=== PATIENT | male | born 1960 | race Caucasian/White ===

== ENCOUNTER 2019-12-22 07:39 | Outpatient (CLI) | payer OTHER, SELFPAY ==
--- NOTE | 2019-12-22 | EST_ITS ---
Patient Info Name: Meagan Wallace Age: 59 years : 1960 Gender: Male Ht: 69 in Wt: 250 lbs BSA: 2.40 m2 Exam Date: 12/22/2019 10:10 AM Exam Location: [facility] Stress Patient Status: Outpatient Admit Date: 12/22/2019 Staff Ordering Physician: Jayden Duarte MD Attending Provider: Jayden Duarte MD Exercise Technologist: Lorene De Los Santos RDCS Nurse: Alondra Cain ANP, ACNP- Exam Type: CA stress test treadmill w NM Study Info Indications I25.10 - Atherosclerotic heart disease of [place] coronary artery without angina pectoris A pharmacological stress test was performed. Summary 1. [address] depression in the inferolateral leads. 2. Non-diagnostic ECG response due to resting abnormalities. 3. Hypertensive blood pressure response to exercise. 4. Good exercise tolerance. 5. Nuclear test results to follow. Protocol: [facility] Stress ECG Details Stage: REST Duration (min): 7 min : 33 sec Speed (mph): 0.0 Grade (%): 0 HR (bpm): 77 SBP (mmHg): 133 DBP (mmHg): 79 METS: --- Stage: REST Duration (min): 24 min : 46 sec Speed (mph): 0.0 Grade (%): 0 HR (bpm): 87 SBP (mmHg): 133 DBP (mmHg): 79 METS: --- Stage: STAGE 1 Duration (min): 1 min : 0 sec Speed (mph): 1.7 Grade (%): 10 HR (bpm): 102 SBP (mmHg): 133 DBP (mmHg): 79 METS: --- Stage: STAGE 1 Duration (min): 2 min : 0 sec Speed (mph): 1.7 Grade (%): 10 HR (bpm): 112 SBP (mmHg): 133 DBP (mmHg): 79 METS: --- Stage: STAGE 1 Duration (min): 3 min : 0 sec Speed (mph): 1.7 Grade (%): 10 HR (bpm): 117 SBP (mmHg): 145 DBP (mmHg): 83 METS: --- Stage: STAGE 2 Duration (min): 1 min : 0 sec Speed (mph): 2.5 Grade (%): 12 HR (bpm): 122 SBP (mmHg): 145 DBP (mmHg): 83 METS: --- Stage: STAGE 2 Duration (min): 2 min : 0 sec Speed (mph): 2.5 Grade (%): 12 HR (bpm): 127 SBP (mmHg): 177 DBP (mmHg): 73 METS: --- Stage: STAGE 2 Duration (min): 3 min : 0 sec Speed (mph): 2.5 Grade (%): 12 HR (bpm): 130 SBP (mmHg): 177 DBP (mmHg): 73 METS: --- Stage: STAGE 3 Duration (min): 1 min : 0 sec Speed (mph): 3.4 Grade (%): 14 HR (bpm): 146 SBP (mmHg): 220 DBP (mmHg): 84 METS: --- Stage: STAGE 3 Duration (min): 2 min : 0 sec Speed (mph): 3.4 Grade (%): 14 HR (bpm): 153 SBP (mmHg): 220 DBP (mmHg): 84 METS: --- Stage: STAGE 3 Duration (min): 2 min : 7 sec Speed (mph): 3.4 Grade (%): 14 HR (bpm): 154 SBP (mmHg): 220 DBP (mmHg): 84 METS: --- Stage: RECOVERY Duration (min): 0 min : 52 sec Speed (mph): 0.0 Grade (%): 0 HR (bpm): 144 SBP (mmHg): 164 DBP (mmHg): 69 METS: --- Stage: RECOVERY Duration (min): 1 min : 52 sec Speed (mph): 0.0 Grade (%): 0 HR (bpm):
--- NOTE | 2019-12-22 | ECHO_ITS ---
Patient Info Name: Meagan Wallace Age: 59 years : 1960 Gender: Male Ht: 69 in Wt: 250 lbs BSA: 2.40 m2 HR: 69 bpm BP: 134 / 85 mmHg Exam Date: 12/22/2019 8:27 AM Exam Location: [facility] Pulmonary Patient Status: Outpatient Admit Date: 12/22/2019 Staff Ordering Physician: Jayden Duarte MD Stamping Bench Die Maker: Shelley Fenton RDCS Attending Provider: Jayden Duarte MD Referring Physician: Gerald PARKER; Exam Type: CA echo doppler color flow Study Info Indications I42.2 - Other hypertrophic cardiomyopathy Complete two-dimensional, color flow and Doppler transthoracic echocardiogram is performed. Summary 1. Technically difficult study, suboptimal image quality. Moderate LVH, borderline LV enlargement. Normal LV systolic function, ejection fraction about 65-70%. Grade 1 diastolic dysfunction. Normal RV size and systolic function. Mild left atrial enlargement. Mild mitral annular calcification, no significant MR. Aortic valve is not well visualized, appears to be moderately calcified. Mild aortic stenosis based on the Doppler, Vmax 2.4 m/s, calculated SAHRA 2.3 cm2. Unable to assess RVSP due to inadequate TR jet velocity. Sinus rhythm. Left Ventricle Left ventricular chamber dimension is mildly enlarged. Left ventricular systolic function is normal, estimated at 65-70%. There is moderately increased left ventricular wall thickness. Left ventricular septal wall motion is normal. The left ventricular diastolic function is grade I diastolic dysfunction. Right Ventricle Right ventricular chamber dimension is normal. Right ventricular systolic function is normal. Left Atria Left atrial chamber dimension is mildly enlarged. Right Atria Right atrial chamber dimension is normal. Aortic Valve There is no aortic valve stenosis. There is no aortic valve regurgitation. There is moderate aortic valve calcification. Pulmonic Valve The pulmonic valve is normal. There is trace pulmonic regurgitation. Mitral Valve The mitral valve has normal leaflets. There is no mitral valve stenosis. There is trace mitral valve regurgitation. The mitral valve annulus is mildly calcified. Tricuspid Valve The tricuspid valve leaflets are normal. There is no significant tricuspid valve stenosis. There is no tricuspid valve regurgitation. Pericardium/Pleural The pericardium appears epicardial fat pad. There is no pericardial effusion. Aorta The aortic root size at the sinus of Valsalva is normal. The prox ascending aorta size is normal. Left Ventricular Outflow Tract Name Value Normal LVOT 2D LVOT Diameter 2.2 cm LVOT Doppler LVOT Peak Gradient 9 mmHg LVOT Mean Gradient 5 mmHg LVOT VTI 40 cm LVOT VTI/AV VTI Ratio 0.7 LVOT Stroke Volume 145 ml Pulmonic Valve Name Value Normal RVOT Doppler
--- NOTE | ~2019-12-22 | NM_ITS ---
EXAMINATION: NM stress w perf spect multi DATE: 12/22/2019 11:44 INDICATION: Coronary atherosclerosis. TECHNIQUE: Rest images were obtained following intravenous administration of 9.4 mCi Tc99m tetrofosmi n ([place]). The patient performed an exercise activity. At peak exercise, 27.1 mCi Tc99m tetrofosmin ([employer]) was administered intravenously, and stress images were obtained. Data was reconstructed in to short axis and horizontal and vertical long axis SPECT images. Gated SPECT images were also obtain ed. COMPARISON: Myocardial perfusion imaging 09/20/2017 FINDINGS: There is no definite reversible or fixed perfusion abnormality to suggest ischemia or infar ction. There is no segmental wall motion abnormality. Left ventricular ejection fraction measures > 70%. IMPRESSION: 1. No definite ischemia or infarct. 2. Normal left ventricular ejection fraction measuring >70%. Reviewed, dictated and finalized at location A. EWATER ENGINEER
== END 2019-12-22 07:40 | disposition home or self-care (01) ==
PROVIDERS: PCP Internal Medicine; Visit Provider Internal Medicine Cardiovascular Disease
DX: I42.2 Other hypertrophic cardiomyopathy (principal); I25.10 Atherosclerotic heart disease of native coronary artery without angina pectoris; Z02.4 Encounter for examination for driving license
CPT/HCPCS: 78452; 93017; 93306; A9502

== ENCOUNTER 2020-09-14 07:11 | Outpatient (CLI) | payer OTHER, SELFPAY ==
[2020-09-14 07:50] LABS: Hemoglobin A1C 7.8 % (<5.7)
[2020-09-14 07:58] LABS: Alanine Aminotransferase 55 U/L (4-50); Albumin Level 4.2 g/dL (3.5-5.1); Alkaline Phosphatase 98 U/L (38-126); Anion Gap 10 mmol/L (8-16); Aspartate Amino Transferase 47 U/L (17-59); Bilirubin,Total 0.9 mg/dL (0.2-1.3); Blood Urea Nitrogen 31 mg/dL (9-20); Calcium 9.2 mg/dL (8.4-10.2); Carbon Dioxide 25 mmol/L (22-30); Chloride 102 mmol/L (98-107); Cholesterol 291 mg/dL (0-200); Estimated Glomerular Filt Rate 52; Glucose 215 mg/dL (75-110); Potassium 3.8 mmol/L (3.4-5.0); Sodium 137 mmol/L (137-145); Triglycerides 1572 mg/dL (<150)
[2020-09-14 08:01] LABS: LDL Cholesterol Direct 32 mg/dL
== END 2020-09-14 07:12 | disposition home or self-care (01) ==
PROVIDERS: PCP Internal Medicine; Visit Provider Nurse Practitioner
DX: E78.5 Hyperlipidemia, unspecified (principal); E11.9 Type 2 diabetes mellitus without complications
CPT/HCPCS: 36415; 80053; 80061; 83036

== ENCOUNTER 2020-12-21 11:30 | Outpatient (CLI) | payer OTHER, SELFPAY | END 2020-12-21 11:31 | disposition home or self-care (01) | LOC: ANHCOVIDVC 11:30 | PROVIDERS: PCP Internal Medicine | DX: Z23 Encounter for immunization (principal) | CPT/HCPCS: 0001A; 91300 ==

== ENCOUNTER 2021-01-11 11:27 | Outpatient (CLI) | payer OTHER, SELFPAY | END 2021-01-11 11:28 | disposition home or self-care (01) | LOC: ANHCOVIDVC 11:27 | PROVIDERS: PCP Internal Medicine | DX: Z23 Encounter for immunization (principal) | CPT/HCPCS: 0002A; 91300 ==

== ENCOUNTER 2021-01-21 07:02 | Outpatient (CLI) | payer OTHER, SELFPAY ==
[2021-01-21 07:38] LABS: Hemoglobin A1C 7.3 % (<5.7)
== END 2021-01-21 07:03 | disposition home or self-care (01) ==
PROVIDERS: PCP Internal Medicine; Visit Provider Internal Medicine
DX: E11.9 Type 2 diabetes mellitus without complications (principal)
CPT/HCPCS: 36415; 83036

== ENCOUNTER 2021-06-27 07:01 | Outpatient (CLI) | payer OTHER, SELFPAY ==
[2021-06-27 08:45] LABS: Hemoglobin A1C 8.3 % (<5.7)
[2021-06-27 08:51] LABS: LDL Cholesterol Direct 64 mg/dL
[2021-06-27 09:10] LABS: Prostate Specific Antigen 0.8 ng/mL (< OR = 4.0)
[2021-06-27 11:29] LABS: Alanine Aminotransferase 79 U/L (4-50); Albumin Level 4.2 g/dL (3.5-5.1); Alkaline Phosphatase 72 U/L (38-126); Anion Gap 6 mmol/L (8-16); Aspartate Amino Transferase 65 U/L (17-59); Blood Urea Nitrogen 22 mg/dL (9-20); Calcium 10.2 mg/dL (8.4-10.2); Carbon Dioxide 28 mmol/L (22-30); Chloride 103 mmol/L (98-107); Cholesterol 206 mg/dL (0-200); Estimated Glomerular Filt Rate 52; Glucose 230 mg/dL (65-110); HDL Direct 40 mg/dL; Potassium 4.4 mmol/L (3.4-5.0); Sodium 137 mmol/L (137-145)
[2021-06-27 11:37] LABS: Triglycerides 591 mg/dL (<150)
== END 2021-06-27 07:02 | disposition home or self-care (01) ==
LOC: ANHLAB 07:03
PROVIDERS: PCP Internal Medicine; Visit Provider Internal Medicine
DX: Z12.5 Encounter for screening for malignant neoplasm of prostate (principal); E11.9 Type 2 diabetes mellitus without complications; I10 Essential (primary) hypertension
CPT/HCPCS: 36415; 80053; 80061; 83036; 84153; G0103

== ENCOUNTER 2021-09-02 10:10 | Emergency (ER) | payer OTHER, SELFPAY ==
--- NOTE | ~2021-09-02 | XR_ITS ---
EXAMINATION: XR ankle RT min 3V DATE: 09/02/2021 12:38 INDICATION: Right ankle pain and swelling. TECHNIQUE: 4 views of right ankle were obtained. COMPARISON: None. FINDINGS: Bone alignment is normal. No fracture. Joint spaces are well maintained. There is ankle sof t tissue swelling. IMPRESSION: 1. No fracture. Reviewed, dictated and finalized at location A. UCTION LEADER IMPRESSION: 1. No fracture.
--- NOTE | ~2021-09-02 | XR_ITS ---
EXAMINATION: XR foot RT min 3V DATE: 09/02/2021 12:38 INDICATION: Right foot pain and swelling. TECHNIQUE: 4 views of right foot were obtained. COMPARISON: None. FINDINGS: Bone alignment is normal. No fracture. Joint spaces are well maintained. There is ankle sof t tissue swelling. IMPRESSION: 1. No fracture. Reviewed, dictated and finalized at location A. RAISING MANAGER IMPRESSION: 1. No fracture.
--- NOTE | ~2021-09-02 | US_ITS ---
EXAMINATION: US venous doppler LE RT DATE: 09/02/2021 12:31 INDICATION: Right lower limb pain and swelling. TECHNIQUE: Grayscale ultrasound images without and with compression and Doppler ultrasound images of the right lower extremity veins were obtained. COMPARISON: None. FINDINGS: The visualized portions of right common femoral vein, profunda (deep) femoral vein, femoral vein, pop liteal vein, peroneal veins, posterior tibial veins, and greater saphenous vein outflow are patent. IMPRESSION: 1. No deep venous thrombosis. Reviewed, dictated and finalized at location A. ERCIAL PROPERTY MANAGER
[2021-09-02 10:21] VITALS: BP 142/95; PULSE 73; RESP 18; TEMP 36.4; O2SAT 99
--- NOTE | 2021-09-02 12:12 | ED.GENADULT ---
HPI - General Adult General Chief complaint: Extremity Injury, Lower Stated complaint: right ankle pain, swelling Time Seen by Provider: 09/02/21 11:46 Source: patient Mode of arrival: ambulatory Limitations: no limitations History of Present Illness HPI narrative: Patient presents for evaluation of pain and swelling in the right ankle and foot. 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 Initially did not have significant pain. However over the course of the week he has developed pain, swelling and bruising. Current pain level is 6/10 without descriptive quality. He states initiation of change in position causes worsening pain. He noted bruising to lateral aspect of right foot Saturday, dorsal aspect of right foot and medial aspect of right foot yesterday. He has been taking ASA for pain. He has an underlying hx of HTN, hyperlipidemia, DM, CAD s/p stent placement. He does not check his BS at home and states he has no idea what his blood sugars normally run. No personal hx of VTE. He does not smoke. He states he has had intermittent swelling in RLE for quite some time. Related Data Home Medications Medication Instructions Recorded Confirmed albuterol sulfate 90 mcg/actuation 2 inhalation INHALATION Q4H PRN gm 11/12/19 07/03/21 aerosol inhaler atorvastatin 40 mg tablet 40 mg PO DAILY 11/12/19 07/03/21 clopidogrel 75 mg tablet 75 mg PO DAILY 11/12/19 07/03/21 fenofibrate nanocrystallized 145 145 mg PO DAILY 11/12/19 07/03/21 mg tablet aspirin 81 mg tablet,delayed 81 mg PO DAILY 07/03/21 07/03/21 release metoprolol tartrate 25 mg tablet 12.5 mg PO BID tablet 07/03/21 07/03/21 metoprolol tartrate 50 mg tablet 50 mg PO Q12H 07/03/21 07/03/21 niacin 1,000 mg tablet,extended 1,000 mg PO DAILY tablet 07/03/21 07/03/21 release Allergies Allergy/AdvReac Type Severity Reaction Status Date / Time propoxyphene Allergy Unknown hives Verified 09/02/21 10:25 Review of Systems Review of Systems: CONSTITUTIONAL: Denies fever, chills, or sweats. EYES: Denies visual changes, redness, or discharge. ENT: Denies rhinorrhea, congestion, sore throat, or otalgia. CARDIOVASCULAR: Reports swelling in right foot and ankle. Denies chest pain or palpitations RESPIRATORY: Denies cough or dyspnea. GASTROINTESTINAL: Denies abdominal pain, nausea, vomiting, or diarrhea. GENITOURINARY: Denies dysuria or hematuria. SKIN: Reports bruising in right foot. Denies rash or itching. MUSCULOSKELETAL:Reports pain in right ankle and foot. Denies back pain NEUROLOGIC: Denies headache, numbness, dizziness, or weakness. PSYCHIATRIC: Denies anxiety or depression. [facility] Past Medical History Medical History Coronary artery disease Diabetes Hyperlipidemia Hypertension Family History Family History Mother Hypertension Family history of diabetes mellitus in first degree relative Family history of heart disease in male family member before age 55 Father Family history of Parkinson's disease Family history of diabetes mellitus in first degree relative Social History Social History Smoking packs per day: 2 Smoking cigarettes per day: 40.0 Years smoked: 30 Smoking pack-years: 60.00 Smoking status: Former smoker Tobacco type: cigarettes Second hand tobacco smoke exposure: No Smoking end date: 10/21/08 Alcohol intake: current Drinks per week: 2 Alcohol use details: beers Substance use: never Exam Narrative: GENERAL: Well-appearing, well-nourished, and in no acute distress. HEAD: Normocephalic, atraumatic. EYES: PERRLA and EOMI. ENT: Nares clear, no rhinorrhea or epistaxis. Mucous membranes moist. Oropharynx without tonsillar hypertrophy exudate or other lesions. Bilateral TMs ranjit
[2021-09-02] MEDS: HYDROcodone/acetaminophen (*CRX) 5-325 MG TABLET 2 TAB PO (12:17)
== END 2021-09-02 13:09 | disposition home or self-care (01) ==
PROVIDERS: Emergency Provider Nurse Practitioner; PCP Internal Medicine
DX: S90.01XA Contusion of right ankle, initial encounter (principal); I10 Essential (primary) hypertension; E78.5 Hyperlipidemia, unspecified; E11.9 Type 2 diabetes mellitus without complications; I25.10 Atherosclerotic heart disease of native coronary artery without angina pectoris; M79.89 Other specified soft tissue disorders; Z87.891 Personal history of nicotine dependence; Z79.899 Other long term (current) drug therapy; Z79.82 Long term (current) use of aspirin; W22.09XA Striking against other stationary object, initial encounter
CPT/HCPCS: 73610; 73630; 93971; 99284; A9270

== ENCOUNTER 2021-09-28 13:22 | Outpatient (CLI) | payer OTHER, SELFPAY ==
[2021-09-28 14:50] LABS: Alanine Aminotransferase 54 U/L (4-50); Albumin Level 4.6 g/dL (3.5-5.1); Alkaline Phosphatase 72 U/L (38-126); Anion Gap 10 mmol/L (8-16); Aspartate Amino Transferase 50 U/L (17-59); Bilirubin,Total 1.5 mg/dL (0.2-1.3); Blood Urea Nitrogen 24 mg/dL (9-20); Calcium 10.1 mg/dL (8.4-10.2); Carbon Dioxide 24 mmol/L (22-30); Chloride 103 mmol/L (98-107); Cholesterol 170 mg/dL (0-200); Estimated Glomerular Filt Rate 44; Glucose 137 mg/dL (65-110); HDL Direct 37 mg/dL; Potassium 3.9 mmol/L (3.4-5.0); Sodium 137 mmol/L (137-145); Triglycerides 488 mg/dL (<150)
[2021-09-28 15:01] LABS: LDL Cholesterol Direct 55 mg/dL
[2021-09-28 15:19] LABS: Prostate Specific Antigen 0.9 ng/mL (< OR = 4.0)
[2021-09-28 16:33] LABS: Hemoglobin A1C 7.9 % (<5.7)
[2021-09-28 16:47] LABS: Creatinine Urine 98.2 mg/dL
[2021-09-28 17:06] LABS: MALB Creatinine Ratio 237.4 mg/g (0-30); Microalbumin Urine Random 233.1 mg/L (0-16.7)
== END 2021-09-28 13:23 | disposition home or self-care (01) ==
PROVIDERS: PCP Internal Medicine; Visit Provider Nurse Practitioner
DX: E11.9 Type 2 diabetes mellitus without complications (principal); E78.2 Mixed hyperlipidemia; Z12.5 Encounter for screening for malignant neoplasm of prostate
CPT/HCPCS: 36415; 80053; 80061; 82043; 83036; 84153; G0103

== ENCOUNTER 2021-10-24 08:03 | Emergency (ER) | payer OTHER, SELFPAY ==
[2021-10-24 08:13] VITALS: BP 129/80; PULSE 72; RESP 18; TEMP 36.8; O2SAT 99
--- NOTE | 2021-10-24 08:21 | ED.URI ---
HPI - URI/Sore Throat General Chief Complaint: Upper Respiratory Infection Stated Complaint: Sinus Infection Time Seen by Provider: 10/24/21 08:20 Source: patient, family, RN notes reviewed and old records reviewed Mode of arrival: ambulatory Limitations: no limitations History of Present Illness HPI Narrative: 60-year-old male who presents to [facility] with complaints of 3-week duration of left nasal congestion stuffiness with yellow drainage. Patient states that he did get a Z-Julius from his physician on October 12 and completed all doses with no improvement in his symptoms. Patient states he does use CPAP which is on recall states he seems to be getting frequent sinus infections. Patient denies any acute cough or any shortness of breath, he has a history of pneumonia, and COPD has not had to use his rescue inhaler. Patient denies any ear pain sore throat or fevers. Patient states he has had influenza and Covid vaccines with booster. Related Data Home Medications Medication Instructions Recorded Confirmed albuterol sulfate 90 mcg/actuation 2 inhalation INHALATION Q4H PRN gm 11/12/19 10/24/21 aerosol inhaler atorvastatin 40 mg tablet 40 mg PO DAILY 11/12/19 10/24/21 clopidogrel 75 mg tablet 75 mg PO DAILY 11/12/19 10/24/21 aspirin 81 mg tablet,delayed 81 mg PO DAILY 07/03/21 10/24/21 release metoprolol tartrate 25 mg tablet 12.5 mg PO BID tablet 07/03/21 10/24/21 metoprolol tartrate 50 mg tablet 50 mg PO Q12H 07/03/21 10/24/21 amlodipine 5 mg PO DAILY 10/24/21 10/24/21 fluticasone propion-salmeterol 1 inh INHALATION DAILY 10/24/21 10/24/21 [Wixela Inhub] glipizide 5 mg PO DAILY 10/24/21 10/24/21 niacin 1,000 mg PO DAILY 10/24/21 10/24/21 prednisolone acetate 1 drp EACH EYE DAILY 10/24/21 10/24/21 Allergies Allergy/AdvReac Type Severity Reaction Status Date / Time propoxyphene Allergy Unknown hives Verified 10/24/21 08:14 Review of Systems Review of Systems: CONSTITUTIONAL: Denies fever, chills, or sweats. EYES: Denies visual changes, redness, or discharge. ENT: Positive rhinorrhea, congestion, no sore throat, or otalgia. CARDIOVASCULAR: Denies chest pain, palpitations, or edema. RESPIRATORY: Denies acute cough or dyspnea. GASTROINTESTINAL: Denies abdominal pain, nausea, vomiting, or diarrhea. GENITOURINARY: Denies dysuria or hematuria. SKIN: Denies rash or itching. MUSCULOSKELETAL: Denies back pain, joint pain, or myalgia. NEUROLOGIC: Denies headache, numbness, or weakness. PSYCHIATRIC: Denies anxiety or depression. All systems reviewed & are unremarkable except as noted in HPI and below PMFSH Past Medical History Medical History (Updated 10/24/21 @ 08:41 by Shelby Doty NP) Coronary artery disease Diabetes Hyperlipidemia Hypertension Surgical History Surgical History (Updated 10/24/21 @ 08:38 by Shelby Doty NP) History of cholecystectomy History of heart artery stent History of thoracotomy Family History Family History Mother Hypertension Family history of diabetes mellitus in first degree relative Family history of heart disease in male family member before age 55 Father Family history of Parkinson's disease Family history of diabetes mellitus in first degree relative Social History Social History Smoking packs per day: 2 Smoking cigarettes per day: 40.0 Years smoked: 30 Smoking pack-years: 60.00 Smoking status: Former smoker Tobacco type: cigarettes Second hand tobacco smoke exposure: No Smoking end date: 10/21/08 Alcohol intake: current Drinks per week: 2 Alcohol use details: beers Substance use: never Comments At time of signature, agree with nursing past medical, surgical, social and family history. There is no relevant family history pertinent to the presenting complaint Exam Narrative: GENERAL: Well-appearing, well-nour
== END 2021-10-24 08:50 | disposition home or self-care (01) ==
PROVIDERS: Emergency Provider Registered Nurse; PCP Internal Medicine
DX: J32.9 Chronic sinusitis, unspecified (principal); Z87.891 Personal history of nicotine dependence; I25.10 Atherosclerotic heart disease of native coronary artery without angina pectoris; E11.9 Type 2 diabetes mellitus without complications; E78.5 Hyperlipidemia, unspecified; I10 Essential (primary) hypertension; Z95.5 Presence of coronary angioplasty implant and graft; Z79.82 Long term (current) use of aspirin
CPT/HCPCS: 99213; G0463

== ENCOUNTER 2021-11-15 09:01 | Outpatient (CLI) | payer OTHER, SELFPAY ==
--- NOTE | ~2021-11-15 | XR_ITS ---
EXAMINATION: XR chest 2V EXAM DATE: 11/15/2021 09:15 INDICATION: R06.02 - Shortness of breath. TECHNIQUE: Frontal and lateral projections of the chest obtained and reviewed. Comparison is made to prior examination from 03/03/1970. FINDINGS: Chronic left pleural blunting. Cardiomediastinal silhouette is normal. No confluent consol idation, or pneumothorax. There are mild bony degenerative changes. IMPRESSION: No acute cardiac pulmonary findings or interval change. Reviewed, dictated and finalized at location A. S C DRIVER
== END 2021-11-15 09:02 | disposition home or self-care (01) ==
PROVIDERS: PCP Internal Medicine; Visit Provider Internal Medicine
DX: R06.02 Shortness of breath (principal)
CPT/HCPCS: 71046

== ENCOUNTER 2022-01-03 07:58 | Outpatient (CLI) | payer OTHER, SELFPAY ==
--- NOTE | 2022-01-03 | ECHO_ITS ---
Patient Info Name: Meagan Wallace Age: 61 years : 1960 Gender: Male Ht: 69 in Wt: 250 lbs BSA: 2.40 m2 HR: 76 bpm BP: 137 / 92 mmHg Heart Rhythm: Sinus Rhythm Exam Date: 01/03/2022 8:40 AM Exam Location: [facility] Patient Status: Outpatient Admit Date: 01/03/2022 Staff Ordering Physician: Jayden Duarte MD Clipper Automatic: Olivier Ascencio RDCS, RT Attending Provider: Jayden Duarte MD Referring Physician: Gerald PARKER; Exam Type: CA echo doppler color flow Study Info Indications I42.2 - Other hypertrophic cardiomyopathy Complete two-dimensional, color flow and Doppler transthoracic echocardiogram is performed. Strain analysis performed. Summary 1. Complete two-dimensional, color flow and Doppler transthoracic echocardiogram is performed. 2. Left ventricular chamber dimension is normal. 3. Left ventricular systolic function is hyperdynamic, estimated at >70%. 4. There is mildly increased left ventricular wall thickness. 5. The left ventricular diastolic function is grade II diastolic dysfunction. 6. Global longitudinal strain is abnormal at -14 %. 7. 'Dagger-shaped' LVOT velocities up to around 1.7 m/sec. 8. Left atrial chamber dimension is mildly enlarged. 9. There is mild aortic valve stenosis with a peak velocity of 241 cm/s, mean gradient of 12 mmHg, and aortic valve area of 2.2 cm2. 10. There is mild aortic valve calcification. 11. There is mild mitral valve regurgitation. 12. Strain analysis performed. Left Ventricle Left ventricular chamber dimension is normal. Left ventricular systolic function is hyperdynamic, estimated at >70%. There is mildly increased left ventricular wall thickness. The left ventricular diastolic function is grade II diastolic dysfunction. Global longitudinal strain is abnormal at -14 %. 'Dagger-shaped' LVOT velocities up to around 1.7 m/sec. Right Ventricle Right ventricular chamber dimension is normal. Right ventricular systolic function is normal. Left Atria Left atrial chamber dimension is mildly enlarged. Right Atria Right atrial chamber dimension is normal. Atrial Septum Intact interatrial septum visualized by color flow imaging. Aortic Valve The aortic valve is trileaflet. There is mild aortic valve stenosis with a peak velocity of 241 cm/s, mean gradient of 12 mmHg, and aortic valve area of 2.2 cm2. There is trace aortic valve regurgitation. There is mild aortic valve calcification. Pulmonic Valve The pulmonic valve is normal. There is no pulmonic valve stenosis. There is trace pulmonic regurgitation. Mitral Valve The mitral valve has normal leaflets. There is no mitral valve stenosis. There is mild mitral valve regurgitation. Tricuspid Valve No pulmonary hypertension, estimated pulmonary arterial systolic pressure is 31 mmHg. The tricuspid valve leaflets are normal. There is no significant tricuspid valve stenosis. There is trace tricuspid valve regurgitation. Pericardium/Pleural The pericardium appears normal. There is no pericardial effusion. Inferior Vena Cava Normal inferior vena cava with >50% collapse upon inspiration consistent with normal right atrial pressure, 8 mmHg. Aorta The aortic root size at the sinus of Valsalva is normal. Left Ventricular Outflow Tract Name Value Normal
--- NOTE | 2022-01-03 | EST_ITS ---
Patient Info Name: Meagan Wallace Age: 61 years : 1960 Gender: Male Ht: 69 in Wt: 250 lbs BSA: 2.40 m2 BP: 137 / 92 mmHg Exam Date: 01/03/2022 10:13 AM Exam Location: [facility] Stress Patient Status: Outpatient Admit Date: 01/03/2022 Staff Ordering Physician: Jayden Duarte MD Attending Provider: Jayden Duarte MD Exercise Technologist: Olivier Ascencio RDCS, RT Exercise Physician: Saige Mason MD Exam Type: CA stress test treadmill w NM Study Info A nuclear stress test was performed. Summary 1. Baseline and/or hyperventilation ST-T changes preclude reliable interpretation of abnormal ST depression during stress. 2. Nuclear test results to follow. Protocol: [facility] Stress ECG Details Stage: REST Duration (min): 8 min : 5 sec Speed (mph): 0.0 Grade (%): 0 HR (bpm): 78 SBP (mmHg): 120 DBP (mmHg): 77 METS: --- Stage: REST Duration (min): 19 min : 20 sec Speed (mph): 0.0 Grade (%): 0 HR (bpm): 87 SBP (mmHg): 120 DBP (mmHg): 77 METS: --- Stage: STAGE 1 Duration (min): 1 min : 0 sec Speed (mph): 1.7 Grade (%): 10 HR (bpm): 101 SBP (mmHg): 120 DBP (mmHg): 77 METS: --- Stage: STAGE 1 Duration (min): 2 min : 0 sec Speed (mph): 1.7 Grade (%): 10 HR (bpm): 109 SBP (mmHg): 120 DBP (mmHg): 77 METS: --- Stage: STAGE 1 Duration (min): 3 min : 0 sec Speed (mph): 1.7 Grade (%): 10 HR (bpm): 113 SBP (mmHg): 165 DBP (mmHg): 78 METS: --- Stage: STAGE 2 Duration (min): 1 min : 0 sec Speed (mph): 2.5 Grade (%): 12 HR (bpm): 118 SBP (mmHg): 165 DBP (mmHg): 78 METS: --- Stage: STAGE 2 Duration (min): 2 min : 0 sec Speed (mph): 2.5 Grade (%): 12 HR (bpm): 123 SBP (mmHg): 164 DBP (mmHg): 95 METS: --- Stage: STAGE 2 Duration (min): 3 min : 0 sec Speed (mph): 2.5 Grade (%): 12 HR (bpm): 124 SBP (mmHg): 164 DBP (mmHg): 95 METS: --- Stage: STAGE 3 Duration (min): 1 min : 0 sec Speed (mph): 3.4 Grade (%): 14 HR (bpm): 138 SBP (mmHg): 196 DBP (mmHg): 94 METS: --- Stage: STAGE 3 Duration (min): 1 min : 41 sec Speed (mph): 3.4 Grade (%): 14 HR (bpm): 146 SBP (mmHg): 196 DBP (mmHg): 94 METS: --- Stage: RECOVERY Duration (min): 0 min : 18 sec Speed (mph): 1.5 Grade (%): 0 HR (bpm): 145 SBP (mmHg): 196 DBP (mmHg): 94 METS: --- Stage: RECOVERY Duration (min): 1 min : 18 sec Speed (mph): 0.0 Grade (%): 0 HR (bpm): 117 SBP (mmHg): 196 DBP (mmHg): 94 METS: --- Stage: RECOVERY Duration (min): 2 min : 18 sec Speed (mph): 0.0 Grade (%): 0 HR (bpm): 104 SBP (mmHg): 196 DBP (mmHg): 94 METS: --- Stage: RECOVERY Duration (min): 3 min :
--- NOTE | ~2022-01-03 | NM_ITS ---
EXAMINATION: NM stress w perf spect multi DATE: 01/03/2022 13:04 INDICATION: Coronary artery disease post coronary artery bypass grafting TECHNIQUE: Rest images were obtained following intravenous administration of 9.8 mCi Tc99m tetrofosmi n ([place]). The patient performed an exercise activity. At peak exercise, 30 mCi Tc99m tetrofosmin ( [employer]) was administered intravenously, and stress images were obtained. Data was reconstructed into short axis and horizontal and vertical long axis SPECT images. Gated SPECT images were also obtained . COMPARISON: 12/22/2019 FINDINGS: Left ventricular perfusion remains normal without definite evidence of reversible or fixed perfusion abnormality to suggest ischemia or infarction. There is normal left ventricular chamber size, wall m otion and ejection fraction. Left ventricular ejection fraction measures 55%. IMPRESSION: 1. Normal myocardial perfusion at rest and during stress. 2. Left ventricular ejection fraction measuring 55%. Reviewed, dictated and finalized at location A.
== END 2022-01-03 07:59 | disposition home or self-care (01) ==
PROVIDERS: PCP Internal Medicine; Visit Provider Internal Medicine Cardiovascular Disease
DX: I42.2 Other hypertrophic cardiomyopathy (principal); I25.10 Atherosclerotic heart disease of native coronary artery without angina pectoris; I35.1 Nonrheumatic aortic (valve) insufficiency; I34.0 Nonrheumatic mitral (valve) insufficiency
CPT/HCPCS: 78452; 93017; 93306; A9502

== ENCOUNTER 2022-02-03 09:52 | Outpatient (CLI) | payer OTHER, SELFPAY ==
[2022-02-03 10:44] LABS: Hemoglobin A1C 7.9 % (<5.7)
[2022-02-03 10:47] LABS: Alanine Aminotransferase 48 U/L (4-50); Albumin Level 4.4 g/dL (3.5-5.1); Alkaline Phosphatase 81 U/L (38-126); Anion Gap 7 mmol/L (8-16); Aspartate Amino Transferase 50 U/L (17-59); Bilirubin,Total 1.3 mg/dL (0.2-1.3); Blood Urea Nitrogen 21 mg/dL (9-20); Calcium 9.3 mg/dL (8.4-10.2); Carbon Dioxide 23 mmol/L (22-30); Chloride 108 mmol/L (98-107); Cholesterol 158 mg/dL (0-200); Estimated Glomerular Filt Rate 52; Glucose 235 mg/dL (65-110); HDL Direct 32 mg/dL; Potassium 4.3 mmol/L (3.4-5.0); Sodium 138 mmol/L (137-145)
[2022-02-03 10:54] LABS: LDL Cholesterol Direct 43 mg/dL
[2022-02-03 11:06] LABS: Triglycerides 643 mg/dL (<150)
== END 2022-02-03 09:53 | disposition home or self-care (01) ==
LOC: ANHLAB 09:53
PROVIDERS: PCP Internal Medicine; Visit Provider Internal Medicine
DX: E78.5 Hyperlipidemia, unspecified (principal); E11.9 Type 2 diabetes mellitus without complications; I10 Essential (primary) hypertension
CPT/HCPCS: 36415; 80053; 80061; 83036

== ENCOUNTER 2022-03-16 06:34 | Outpatient (CLI) | payer OTHER, SELFPAY ==
--- NOTE | ~2022-03-16 | CT_ITS ---
EXAMINATION: CT sinus wo con DATE: 03/16/2022 07:09 INDICATION: Nasal polyps. TECHNIQUE: Computed tomography (CT) of the paranasal sinuses was performed without intravenous contra st. Iterative reconstruction technique was employed. The dose-length product was 280.71 mGy-cm. COMPARISON: None FINDINGS: There is near complete opacification of the left frontal sinuses. There is mild mucosal thi ckening in right frontal recess. There is moderate to severe mucosal thickening in the ethmoid sinuse s and mild mucosal thickening in the sphenoid sinuses. There is severe mucosal thickening in the maxi llary sinuses. There is rightward deviation of the nasal septum. There is debi bullosa involving th e middle turbinates. The ostiomeatal units are occluded. There are polyps in the nasal cavity, left w orse than right. There are likely changes of ocular lens replacement surgeries. IMPRESSION: 1. Polyps in the nasal cavity. 2. Mucosal thickening in the paranasal sinuses with occluded ostiomeatal units. These findings may be sinonasal polyposis. 3. Rightward deviation of the nasal septum. Reviewed, dictated and finalized at location A.
== END 2022-03-16 06:35 | disposition home or self-care (01) ==
LOC: ANHIMG 06:38
PROVIDERS: PCP Internal Medicine; Visit Provider Otolaryngology
DX: J32.9 Chronic sinusitis, unspecified (principal); R44.8 Other symptoms and signs involving general sensations and perceptions; R09.82 Postnasal drip; J34.3 Hypertrophy of nasal turbinates; J34.2 Deviated nasal septum; J34.89 Other specified disorders of nose and nasal sinuses; R09.81 Nasal congestion; J33.9 Nasal polyp, unspecified
CPT/HCPCS: 70486

== ENCOUNTER 2022-04-06 04:19 | Day surgery (SDC) | payer OTHER, SELFPAY ==
--- NOTE | 2022-04-02 15:48 | PC.NURSE ---
Report to the Outpatient Waiting Room, entrance under the green pavilion located off [facility], at time _0600 on date _04/06/22. OR Time: __0730_. - You and your visitor will be asked a series of questions to screen for COVID 19 for your protection. - Only one visitor is allowed at this time. - The patient visitor is requested to leave or wait in car when not with patient. - A mask is required within the hospital. Patients may have clear liquids (water, carbonated beverages, clear teas, apple juice) until 3 hours prior to surgery with a maximum of 20 ounces. - No food from midnight until time of surgery - Take the following medications with a SIP of water the morning of surgery: __AMLODIPINE; METOPROLOL; PREDNISONE; PREDNISOLONE EYE GTTS Medications to discontinue per physician __ASA & PLAVIX STOP PER DR. BOO INSTRUCTIONS__ Date to take last dose____04/02/22 Please no make-up, nail yoruba, hairspray, perfume, deodorant, or body powder the day of surgery. No jewelry (including any body piercings) or valuables the day of surgery, leave them at home. Please take a shower or bath the night before, or the morning of, surgery with an antibacterial soap. Wear comfortable, loose fitting clothing. Children are encouraged to wear pajamas. - Jewelry must be removed prior to entering the operating room. Rings and piercings that are not removed may be cut off. - The hospital will not accept responsibility for valuables. - Please leave all valuables, including medications, at home the day of surgery. If you are going home after surgery, a licensed utility driver must drive you home. - NO public transportation without another adult. - We recommend that an adult stay with you for 24 hours following discharge. - We also recommend that you do not drive, make important decision, drink alcoholic beverages, or take any drugs that were not prescribed by your health care provider for at least 24 hours after your discharge time. Follow any additional instructions given to you from your surgeon. If you or anyone in your household have experienced Covid symptoms in the past week, please notify your surgeon or the nurse liaison at the phone number below for possible testing. Telephone instructions given to __CAMRON OSEGUERA and asked if any additional questions and then verbalized understanding. Patient advised to call surgeon office or pre surgery nurse liaison [phone] if any additional questions.
--- NOTE | 2022-04-05 07:56 | PM.IMHP ---
H&P: HPI History of Present Illness Date/Time: 04/05/22 07:56 Chief Complaint: chronic sinus nasal polyps septal deviation turbinate hypertrophy nasal congestion nasal obstruction postnasal drainage facial pressure facial pain Narrative: patient presents for planned surgical procedure no change in symptoms no change in history Review of Systems Review of Systems: All systems reviewed & are unremarkable except as noted in HPI and below PMFSH Past Medical History Medical History Coronary artery disease Diabetes Hyperlipidemia Hypertension Surgical History Surgical History History of cholecystectomy History of heart artery stent History of thoracotomy Family History Family History Mother Hypertension Family history of diabetes mellitus in first degree relative Family history of heart disease in male family member before age 55 Father Family history of Parkinson's disease Family history of diabetes mellitus in first degree relative Social History Social History Smoking packs per day: 2 Smoking cigarettes per day: 40.0 Years smoked: 35 Smoking pack-years: 70.00 Smoking status: Former smoker Tobacco type: cigarettes Second hand tobacco smoke exposure: No Smoking end date: 10/21/08 Alcohol intake: current Drinks per week: 2 Alcohol use details: miguel Substance use: never Substance use type: does not use Last use: 2008 Living arrangements: with family Spiritual care concerns: No Meds Home Medications and Allergies Home Medications Medication Instructions Recorded Confirmed Type clopidogrel 75 mg tablet 75 mg PO DAILY 11/12/19 04/02/22 History aspirin 81 mg tablet,delayed 81 mg PO DAILY 07/03/21 04/02/22 History release metoprolol tartrate 25 mg tablet 12.5 mg PO BID 07/03/21 04/02/22 History metoprolol tartrate 50 mg tablet 50 mg PO Q12H 07/03/21 04/02/22 History glipizide 10 mg tablet, extended 10 mg PO DAILY #90 tabs 10/05/21 04/02/22 Rx release 24 hr prednisolone acetate 1 % eye 1 drp EACH EYE DAILY 10/24/21 04/02/22 History drops,suspension fluticasone 250 mcg-salmeterol 50 1 inh inhalation DAILY #60 ea 12/28/21 04/02/22 Rx mcg/dose blistr powdr for inhalation (Wixela Inhub) albuterol sulfate 90 mcg/actuation 2 inh inhalation Q4H PRN shortness 02/01/22 04/02/22 Rx aerosol inhaler of breath or wheezing #8.5 grams rosuvastatin 40 mg tablet 40 mg PO DAILY #90 tabs 02/08/22 04/02/22 Rx fluticasone propionate 93 1 spray intranasal Q12H #16 mL 03/08/22 04/02/22 Rx mcg/actuation breath activated aerosol (Xhance) empagliflozin 25 mg tablet 25 mg PO DAILY #90 tabs 03/28/22 04/02/22 Rx (Jardiance) amlodipine 5 mg tablet 5 mg PO DAILY 04/02/22 04/02/22 History icosapent ethyl 1 gram capsule 2 g PO BID 04/02/22 04/02/22 History (Vascepa) prednisone 10 mg tablet 10 mg PO DAILY #4 tabs 04/02/22 04/02/22 Rx sitagliptin 100 mg tablet (Januvia) 100 mg PO DAILY 04/02/22 04/02/22 History Allergies Allergy/AdvReac Type Severity Reaction Status Date / Time No Known Allergies Allergy Verified 04/02/22 15:45 Exam HENMT: Other: septal deviation turbinate hypertrophy middle meatal edema Assessment and Plan Assessment and plan (1) Facial pressure: Code(s): R44.8 - Other symptoms and signs involving general sensations and perceptions Status: Acute (2) PND (post-nasal drip): Code(s): R09.82 - Postnasal drip Status: Acute (3) Hypertrophy of both inferior nasal turbinates: Code(s): J34.3 - Hypertrophy of nasal turbinates Status: Acute (4) Nasal septal deviation: Code(s): J34.2 - Deviated nasal septum Status: Acute (5) Nasal obstruction: Code(s): J34.89 - Other specified
[2022-04-06] VITALS (12 sets, daily range): BP systolic 118–167; BP diastolic 73–83; PULSE 70–81; RESP 12–22; TEMP 36.4; O2SAT 88–98
--- NOTE | 2022-04-06 07:12 | WPDHPUPDATE1 ---
History and Physical Update Update Date/Time: 04/06/22 07:12 History and Physical has been reviewed, including an updated exam of the patient. There are NO changes in the patient's condition. Risks, benefits, and alternatives have been discussed and questions answered. Patient agrees to proceed with procedure.
--- NOTE | 2022-04-06 07:16 | WPDANESEPPF ---
Anes - Initial Pre Proc Eval Procedure: Operation Date: 04/06/22 09:00 Proposed Procedures p Image Guided Endoscopic Bilateral Maxillary Antrostomy, Total Ethmoidectomy, Sphenoidotomy, Frontal Sinusotomy, Bilateral Inferior Turbinectomy with Outfracture, - Danny Zhang MD s Septoplasty - Danny Zhang MD Date/Time: 04/06/22 07:16 Surgeon: Danny Zhang MD Pre Op Diagnosis: chronic sinusitis Patient Data Age: 61 Gender: M Height: 1.75 m Weight: 113.5 kg Allergies Allergy/AdvReac Type Severity Reaction Status Date / Time No Known Allergies Allergy Verified 04/02/22 15:45 Home Medications Medication Instructions Recorded Confirmed Type clopidogrel 75 mg tablet 75 mg PO DAILY 11/12/19 04/02/22 History aspirin 81 mg tablet,delayed 81 mg PO DAILY 07/03/21 04/02/22 History release metoprolol tartrate 25 mg tablet 12.5 mg PO BID 07/03/21 04/02/22 History metoprolol tartrate 50 mg tablet 50 mg PO Q12H 07/03/21 04/02/22 History glipizide 10 mg tablet, extended 10 mg PO DAILY #90 tabs 10/05/21 04/02/22 Rx release 24 hr prednisolone acetate 1 % eye 1 drp EACH EYE DAILY 10/24/21 04/02/22 History drops,suspension fluticasone 250 mcg-salmeterol 50 1 inh inhalation DAILY #60 ea 12/28/21 04/02/22 Rx mcg/dose blistr powdr for inhalation (Wixela Inhub) albuterol sulfate 90 mcg/actuation 2 inh inhalation Q4H PRN shortness 02/01/22 04/02/22 Rx aerosol inhaler of breath or wheezing #8.5 grams rosuvastatin 40 mg tablet 40 mg PO DAILY #90 tabs 02/08/22 04/02/22 Rx fluticasone propionate 93 1 spray intranasal Q12H #16 mL 03/08/22 04/02/22 Rx mcg/actuation breath activated aerosol (Xhance) empagliflozin 25 mg tablet 25 mg PO DAILY #90 tabs 03/28/22 04/02/22 Rx (Jardiance) amlodipine 5 mg tablet 5 mg PO DAILY 04/02/22 04/02/22 History icosapent ethyl 1 gram capsule 2 g PO BID 04/02/22 04/02/22 History (Vascepa) prednisone 10 mg tablet 10 mg PO DAILY #4 tabs 04/02/22 04/02/22 Rx sitagliptin 100 mg tablet (Januvia) 100 mg PO DAILY 04/02/22 04/02/22 History Patient hx anesthesia problems: none Family hx anesthesia problems: none Results Review: All pre-operative results and documents have been reviewed as part of the pre-operative evaluation. [facility] Past Medical History Medical History (Updated 04/06/22 @ 07:17 by Mono Mercer DO) COPD (chronic obstructive pulmonary disease) Coronary artery disease Diabetes History of heart attack Hyperlipidemia Hypertension Surgical History Surgical History (Updated 04/06/22 @ 07:17 by Mono Mercer DO) History of cholecystectomy History of heart artery stent x2 stents History of thoracotomy Family History Family History Mother Hypertension Family history of diabetes mellitus in first degree relative Family history of heart disease in male family member before age 55 Father Family history of Parkinson's disease Family history of diabetes mellitus in first degree relative Social History Social History Smoking packs per day: 2 Smoking cigarettes per day: 40.0 Years smoked: 35 Smoking pack-years: 70.00 Smoking status: Former smoker Tobacco type: cigarettes Second hand tobacco smoke exposure: No Smoking end date: 10/21/08 Alcohol intake: current Drinks per week: 2 Alcohol use details: miguel Substance use: never Substance use type: does not use Last use: 2008 Living arrangements: with family Spiritual care concerns: No Anes - Eval Final PreProcedure Day of Procedure 04/06/22 07:16 Patient weight: obese Heart: regular rate and rhythm Lungs: clear to auscultation Airway: Mallampati scale class II Neurological: alert and oriented Last oral intake: >/= 8 hours ASA classification: III Emergent: no Anesthetic plan: proceed Anesthesia type and monitoring: general ETT and standa
[2022-04-06] MEDS: LACTATED RINGERS 1,000 ML 30 ML IV CONT ×2 (07:37→11:21)
[2022-04-06] MEDS: ACETAMINOPHEN 500 MG TABLET 1000 MG PO (07:37)
[2022-04-06 07:41] LABS: Glucose Point of Care 233 mg/dl (65-105)
[2022-04-06] MEDS: ceFAZolin 2 GM/D5W 50 ML 2 GM/50 ML BAG IVPB (08:27)
[2022-04-06] MEDS: OXYMETAZOLINE HCL 0.05% NAS 15 ML BTL (*BKC) 1 SPRAY NASAL (08:34)
[2022-04-06] MEDS: LIDO 1%/EPINEPHRINE/PF 1:200,000 30 ML VIAL 5 ML XX (08:35)
--- NOTE | 2022-04-06 12:47 | SUR.PHASEII ---
1247- Notified Dr. Mercer patient's BG 267 and oxygen saturation in high 80's to low 90's on room air. Received orders to give 3 units Regular insulin IVP and Albuterol nebulizer treatment.
[2022-04-06 12:55] LABS: Glucose Point of Care 267 mg/dl (65-105)
[2022-04-06] MEDS: INSULIN HUMAN REGULAR (*BKC) 100 UNITS/ML IV PUSH (12:58)
[2022-04-06] MEDS: ALBUTEROL SULFATE NEB 2.5 MG/3 ML INH INHALATION (13:06)
--- NOTE | 2022-04-07 08:17 | W.PM.PROC2 ---
Procedure Note - Detailed Date of Procedure 04/07/22 Pre-op Diagnosis chronic sinusitis, septal deviation, turbinate hypertrophy, nasal obstruction, nasal congestion, nasal polyps, debi bullosa Post-op Diagnosis Same Procedure Performed endoscopic assisted septoplasty, bilateral inferior turbinate submucosal reduction with outfracture, bilateral image guided endoscopic maxillary antrostomies both with tissue removal, endoscopic image guided bilateral total ethmoidectomies, image guided endoscopic bilateral sphenoidotomies, image guided endoscopic left-sided frontal sinusotomy, bilateral image guided endoscopic middle turbinectomies. Surgeon Danny Zhang MD Anesthesia General Indications See above Findings large polypoid burden bilateral middle turbinates leading to resection septal deviation well corrected following surgery small anterior spurs left on the septum is were fairly obstructive middle turbinates well reduced. A severe disease burden polypoid not follow in the bilateral maxillary sinuses. Description of Procedure Patient identified consent verified. Patient brought operating. Time-out performed. General anesthesia induced. Endotracheal tube secured taped left lower lip. Image guidance initiated confirmed. Patient prepped and draped for for mentioned procedure. Second time-out performed. Afrin-soaked pledgets placed in the bilateral nasal passages allowed to sit for 5 minutes then removed. 0 degree endoscope utilized bilateral septal deviation S-shaped more on the right noted 10 cc 1% local 1 100,000 parts epinephrine injected in the bilateral septum sub mucoperichondrial plane. Left-sided [place] sitting made. Left-sided nasal septal flap elevated 7 Turkish suction. Osteotome in utilized to cross the nasal septum. Right-sided nasal splint septal flap elevated. Deviated nasal septum removed with combination Derek Salinas and Lacho forceps as well as osteotome. Orlin incision on the left nasal septum then closed with 2 interrupted 5 0 fast gut sutures. Turbinates reduced in the submucoperichondrial plane sorry submucosal plane 2 mm microdebrider outfractured this occurred after injecting 1 cc of 1% lidocaine with 1 100,000 parts epinephrine into each inferior turbinate. Again that was a bilateral procedure. Middle turbinates then resected after injecting 1 cc into them. They had large polyp burden. They were resected with straight through cut image guidance the stumps were adequately cauterized. Bilateral maxillary antrostomies performed with double ball tip probe backbiter and straight through cut as well as micro debrider. Rad 60 utilized to remove severe polyp burden from the bilateral maxillary sinuses. Ethmoidectomies performed with Kerrison straight through cut as well as microdebrider and a significant use of image guidance given the severe polyp burden. He polypectomy was essentially performed throughout the procedure with microdebrider. Sphenoid odd a means performed with image guidance 1 Kerrison to 3 Kerrison micro debrider adequately opened. Partitions were cleaned off the skull base and orbits there were no injuries no complications. Left frontal sinusotomy performed with 70 degree scope 70 degree suction Cobra hose Ashlie in front to back draft. Following the procedure posterior septal branches as well as stumps were again cauterized. Nova pack was placed in the bilateral postoperative cavities does splints then placed sutured anteriorly using a mattress 3 0 nylon suture. I performed all dictated portions of the procedure. Total blood loss about 200 cc. There were no complications. Care the patient was given to Anesthesiology. Patient was then taken to PACU. Estimated Blood Loss 200 Urine Output 500 Packing Yes Pathology None sent Complications No immediate complications Condition Stable Disposition PACU
== END 2022-04-06 13:55 | disposition home or self-care (01) ==
PROVIDERS: PCP Internal Medicine; Visit Provider Otolaryngology
PROC: (CPT 31267; principal; 2022-04-06 09:00)
PROC: (CPT 30520; 2022-04-06 09:00)
DX: J32.9 Chronic sinusitis, unspecified (principal); R09.82 Postnasal drip; R09.81 Nasal congestion; J33.9 Nasal polyp, unspecified; J34.3 Hypertrophy of nasal turbinates; J34.2 Deviated nasal septum; J34.89 Other specified disorders of nose and nasal sinuses; R51.9 Headache, unspecified; J44.9 Chronic obstructive pulmonary disease, unspecified; I25.10 Atherosclerotic heart disease of native coronary artery without angina pectoris; I25.2 Old myocardial infarction; E11.9 Type 2 diabetes mellitus without complications; I10 Essential (primary) hypertension; E78.5 Hyperlipidemia, unspecified; Z95.5 Presence of coronary angioplasty implant and graft; Z87.891 Personal history of nicotine dependence; E66.9 Obesity, unspecified; Z68.37 Body mass index [BMI] 37.0-37.9, adult; Z79.02 Long term (current) use of antithrombotics/antiplatelets; Z79.52 Long term (current) use of systemic steroids; Z79.84 Long term (current) use of oral hypoglycemic drugs; Z79.51 Long term (current) use of inhaled steroids
CPT/HCPCS: 31267; 31253; 31287; 61782; 30999; 30140; 30520; 82948; A9270; J0330; J0690; J1100; J1815; J2405; J2704; J3010; J7120

== ENCOUNTER 2022-05-09 10:37 | Outpatient (CLI) | payer OTHER, SELFPAY ==
--- NOTE | ~2022-05-09 | XR_ITS ---
XR hip LT min 2V DATE: 05/09/2022 10:59 INDICATION: Left hip pain TECHNIQUE: AP and lateral views COMPARISON: None FINDINGS: No fracture or dislocation, avascular necrosis or bone destruction of the left hip. Left hi p joint space appears relatively well preserved. The pubic symphysis and left sacroiliac joint are in tact. IMPRESSION: Negative Reviewed, dictated and finalized at location B. IMPRESSION: Negative
--- NOTE | ~2022-05-09 | XR_ITS ---
XR lumbar spine 2-3V DATE: 05/09/2022 10:59 INDICATION: Back pain, radiating to left hip TECHNIQUE: AP, lateral, coned lateral lumbosacral views COMPARISON: 09/18/2017 CT abdomen pelvis FINDINGS: Bilateral L5 pars interarticularis defects with grade 1 anterolisthesis at L5-S1. Mild degenerative disc disease at L1-2, L2-3 and L4-5. Moderately severe degenerative disc disease at L5-S1. No interval fracture or bone destruction is evident. The lumbar pedicles are intact. The sacral iliac joints are normal. Surgical clips, right upper quadrant, consistent with cholecystectomy. IMPRESSION: Bilateral L5 pars interarticularis defects and grade 1 anterolisthesis and moderately sev ere degenerative disc disease at L5-S1 Mild degenerative disease of the remainder of the lumbar spine Reviewed, dictated and finalized at location B. IMPRESSION: Bilateral L5 pars interarticularis defects and grade 1 anterolisthe sis and moderately severe degenerative disc disease at L5-S1 Mild degenerative disease of the remainder of the lumbar spine
== END 2022-05-09 10:38 | disposition home or self-care (01) ==
PROVIDERS: PCP Internal Medicine; Visit Provider Internal Medicine
DX: M54.9 Dorsalgia, unspecified (principal); M79.606 Pain in leg, unspecified; M51.36 Other intervertebral disc degeneration, lumbar region
CPT/HCPCS: 72100; 73502

== ENCOUNTER 2022-10-08 14:44 | Outpatient (CLI) | payer OTHER, SELFPAY ==
--- NOTE | ~2022-10-08 | XR_ITS ---
EXAMINATION: XR chest 2V DATE: 10/08/2022 15:01 INDICATION: Unspecified asthma. Uncomplicated cough. TECHNIQUE: Frontal and lateral views of the chest were obtained. COMPARISON: Chest 2 views 11/15/2021, 03/03/2017, chest CT 11/27/2017 FINDINGS: There is chronic blunting of left lateral and posterior costophrenic angles correlating wit h scarring and extrapleural fat on the prior CT. No pneumonia, pleural effusion, or pneumothorax. The heart size is normal. IMPRESSION: 1. Stable scarring at left lung base. Reviewed, dictated and finalized at location A. 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
== END 2022-10-08 14:45 | disposition home or self-care (01) ==
PROVIDERS: PCP Internal Medicine; Visit Provider Internal Medicine
DX: J45.909 Unspecified asthma, uncomplicated (principal)
CPT/HCPCS: 71046

== ENCOUNTER 2022-10-23 07:10 | Outpatient (CLI) | payer OTHER, SELFPAY ==
[2022-10-23 09:13] LABS: Alanine Aminotransferase 48 U/L (6-50); Albumin Level 4.4 g/dL (3.5-5.1); Alkaline Phosphatase 84 U/L (38-126); Anion Gap 10 mmol/L (8-16); Aspartate Amino Transferase 42 U/L (17-59); Bilirubin,Total 1.7 mg/dL (0.2-1.3); Blood Urea Nitrogen 25 mg/dL (9-20); Carbon Dioxide 24 mmol/L (22-30); Chloride 105 mmol/L (98-107); Cholesterol 261 mg/dL (0-200); Estimated Glomerular Filt Rate 56; Glucose 203 mg/dL (65-110); Potassium 4.3 mmol/L (3.4-5.0); Sodium 139 mmol/L (137-145)
[2022-10-23 09:16] LABS: Prostate Specific Antigen 0.8 ng/mL (< OR = 4.0)
[2022-10-23 09:17] LABS: LDL Cholesterol Direct < 30 mg/dL
[2022-10-23 10:56] LABS: Hemoglobin A1C 9.8 % (<5.7)
[2022-10-23 12:25] LABS: Triglycerides 1192 mg/dL (<150)
[2022-10-23 12:32] LABS: Creatinine Urine 67.3 mg/dL
[2022-10-23 12:48] LABS: MALB Creatinine Ratio 538.5 mg/g (0-30); Microalbumin Urine Random 362.4 mg/L (0-16.7)
== END 2022-10-23 07:11 | disposition home or self-care (01) ==
PROVIDERS: PCP Internal Medicine; Visit Provider Nurse Practitioner
DX: E11.9 Type 2 diabetes mellitus without complications (principal); Z12.5 Encounter for screening for malignant neoplasm of prostate; E78.5 Hyperlipidemia, unspecified
CPT/HCPCS: 36415; 80053; 80061; 82043; 83036; 84153; G0103

== ENCOUNTER 2023-01-12 09:16 | Outpatient (CLI) | payer OTHER, SELFPAY ==
[2023-01-12 10:03] LABS: Alanine Aminotransferase 29 U/L (6-50); Albumin Level 4.2 g/dL (3.5-5.1); Alkaline Phosphatase 69 U/L (38-126); Anion Gap 6 mmol/L (8-16); Aspartate Amino Transferase 28 U/L (17-59); Bilirubin,Total 1.1 mg/dL (0.2-1.3); Blood Urea Nitrogen 28 mg/dL (9-20); Calcium 9.3 mg/dL (8.4-10.2); Carbon Dioxide 29 mmol/L (22-30); Chloride 105 mmol/L (98-107); Cholesterol 153 mg/dL (0-200); Estimated Glomerular Filt Rate 56; Glucose 207 mg/dL (65-110); HDL Direct 33 mg/dL; Potassium 4.8 mmol/L (3.4-5.0); Sodium 140 mmol/L (137-145); Triglycerides 409 mg/dL (<150)
[2023-01-12 10:14] LABS: LDL Cholesterol Direct 44 mg/dL
[2023-01-12 10:54] LABS: Hemoglobin A1C 8.2 % (<5.7)
== END 2023-01-12 09:17 | disposition home or self-care (01) ==
LOC: ANHLAB 09:18
PROVIDERS: PCP Internal Medicine; Visit Provider Internal Medicine
DX: E78.1 Pure hyperglyceridemia (principal); N18.9 Chronic kidney disease, unspecified; E11.29 Type 2 diabetes mellitus with other diabetic kidney complication
CPT/HCPCS: 36415; 80053; 80061; 83036

== ENCOUNTER 2023-02-14 13:10 | Outpatient (RCR) | payer OTHER, SELFPAY ==
[2023-02-14 13:22] VITALS: BMI 34.5
[2023-02-14 14:23] VITALS: BMI 34.5
== END 2023-05-06 08:57 | disposition home or self-care (01) ==
LOC: ANHDMC 13:10
PROVIDERS: PCP Internal Medicine; Visit Provider Nurse Practitioner Family
DX: E11.9 Type 2 diabetes mellitus without complications (principal); Z71.3 Dietary counseling and surveillance; Z71.89 Other specified counseling
CPT/HCPCS: 97802; G0108

== ENCOUNTER 2023-04-20 06:56 | Outpatient (CLI) | payer OTHER, SELFPAY ==
[2023-04-20 08:13] LABS: Alanine Aminotransferase 30 U/L (6-50); Albumin Level 4.2 g/dL (3.5-5.1); Alkaline Phosphatase 64 U/L (38-126); Anion Gap 7 mmol/L (8-16); Aspartate Amino Transferase 33 U/L (17-59); Bilirubin,Total 1.3 mg/dL (0.2-1.3); Blood Urea Nitrogen 23 mg/dL (9-20); Calcium 9.6 mg/dL (8.4-10.2); Carbon Dioxide 29 mmol/L (22-30); Chloride 105 mmol/L (98-107); Estimated Glomerular Filt Rate 56; Glucose 153 mg/dL (65-110); Potassium 4.2 mmol/L (3.4-5.0); Sodium 141 mmol/L (137-145)
[2023-04-20 08:25] LABS: Hemoglobin A1C 7.4 % (<5.7)
== END 2023-04-20 06:57 | disposition home or self-care (01) ==
LOC: ANHLAB 06:59
PROVIDERS: PCP Family Medicine; Visit Provider Nurse Practitioner Family
DX: E11.9 Type 2 diabetes mellitus without complications (principal)
CPT/HCPCS: 36415; 80053; 83036

== ENCOUNTER 2024-01-04 09:07 | Outpatient (CLI) | payer OTHER, SELFPAY ==
[2024-01-04 09:24] LABS: Basophils Absolute Auto 0.1 K/mm3 (0.0-0.1); Basophils Percent Auto 1.3 % (0.2-1.2); Eosinophils Absolute Auto 0.8 K/mm3 (0-0.3); Eosinophils Percent Auto 9.9 % (0-4.4); Hematocrit 50.4 % (42.0-52.0); Hemoglobin 16.4 g/dL (14.0-18.0); Immature Granulocyte Absolute 0.02 K/mm3 (0.00-0.031); Immature Granulocyte Percent A 0.3 % (0-0.5); Lymphocytes Absolute Auto 1.58 K/mm3 (0.9-3.2); Lymphocytes Percent Auto 20.9 % (18.3-44.2); Mean Corpuscular HGB Conc 32.5 g/dl (32-36); Mean Corpuscular Hemoglobin 28.4 pg (26-34); Mean Corpuscular Volume 87.3 fl (80-100); Monocytes Absolute Auto 0.8 K/mm3 (0.1-0.6); Monocytes Percent Auto 10.3 % (2.6-8.5); Neutrophils Absolute Auto 4.3 K/mm3 (1.3-6.7); Neutrophils Percent Auto 57.3 % (45.5-73.1); Platelet Count Result 148 k/mm3 (150-375); Red Blood Count 5.77 M/mm3 (4.6-6.20); Red Cell Distribution Width 16.4 % (11.5-14.5); White Blood Count 7.6 K/mm3 (4.5-10.0)
[2024-01-04 11:21] LABS: Creatinine Urine 47.4 mg/dL
[2024-01-04 11:25] LABS: MALB Creatinine Ratio 291.1 mg/g (0-30)
[2024-01-04 11:35] LABS: LDL Cholesterol Direct 49 mg/dL
[2024-01-04 11:52] LABS: Prostate Specific Antigen 0.6 ng/mL (< OR = 4.0)
[2024-01-04 13:14] LABS: Alanine Aminotransferase 44 U/L (6-50); Albumin Level 4.1 g/dL (3.5-5.1); Alkaline Phosphatase 63 U/L (38-126); Anion Gap 7 mmol/L (8-16); Aspartate Amino Transferase 55 U/L (17-59); Bilirubin,Total 1.5 mg/dL (0.2-1.3); Blood Urea Nitrogen 25 mg/dL (9-20); Calcium 9.3 mg/dL (8.4-10.2); Carbon Dioxide 25 mmol/L (22-30); Chloride 107 mmol/L (98-107); Cholesterol 174 mg/dL (0-200); Estimated Glomerular Filt Rate 51; Glucose 299 mg/dL (65-110); Potassium 4.6 mmol/L (3.4-5.0); Sodium 139 mmol/L (137-145)
[2024-01-04 13:16] LABS: Triglycerides 875 mg/dL (<150)
== END 2024-01-04 09:08 | disposition home or self-care (01) ==
LOC: ANHLAB 09:08
PROVIDERS: PCP Nurse Practitioner Family; Visit Provider Nurse Practitioner Family
DX: G47.33 Obstructive sleep apnea (adult) (pediatric) (principal); I25.10 Atherosclerotic heart disease of native coronary artery without angina pectoris; E78.5 Hyperlipidemia, unspecified; Z12.5 Encounter for screening for malignant neoplasm of prostate; E11.9 Type 2 diabetes mellitus without complications; I12.9 Hypertensive chronic kidney disease with stage 1 through stage 4 chronic kidney disease, or unspecified chronic kidney disease; N18.9 Chronic kidney disease, unspecified
CPT/HCPCS: 36415; 80053; 80061; 82043; 84153; 85025; G0103

== ENCOUNTER 2024-01-09 10:35 | Outpatient (CLI) | payer OTHER, SELFPAY ==
[2024-01-10 10:26] LABS: Hemoglobin A1C 10.1 % (<5.7)
== END 2024-01-09 10:36 | disposition home or self-care (01) ==
PROVIDERS: PCP Nurse Practitioner Family; Visit Provider Nurse Practitioner Family
DX: E11.29 Type 2 diabetes mellitus with other diabetic kidney complication (principal)
CPT/HCPCS: 36415; 83036

== ENCOUNTER 2024-06-04 07:09 | Outpatient (CLI) | payer OTHER, SELFPAY ==
[2024-06-04 07:46] LABS: Hemoglobin A1C 6.9 % (<5.7)
[2024-06-04 07:53] LABS: LDL Cholesterol Direct 49 mg/dL
[2024-06-04 09:54] LABS: Alanine Aminotransferase 33 U/L (6-50); Albumin Level 4.2 g/dL (3.5-5.1); Alkaline Phosphatase 66 U/L (38-126); Anion Gap 10 mmol/L (4-12); Aspartate Amino Transferase 37 U/L (17-59); Bilirubin,Total 1.5 mg/dL (0.2-1.3); Blood Urea Nitrogen 20 mg/dL (9-20); Calcium 9.5 mg/dL (8.4-10.2); Carbon Dioxide 26 mmol/L (22-30); Chloride 105 mmol/L (98-107); Estimated Glomerular Filt Rate 47; Glucose 132 mg/dL (65-110); Potassium 4.5 mmol/L (3.4-5.0); Sodium 141 mmol/L (137-145)
[2024-06-04 10:35] LABS: Cholesterol 133 mg/dL (0-200); HDL Direct 44 mg/dL; Triglycerides 200 mg/dL (<150)
== END 2024-06-04 07:10 | disposition home or self-care (01) ==
PROVIDERS: PCP Nurse Practitioner Family; Visit Provider Nurse Practitioner Family
DX: E11.9 Type 2 diabetes mellitus without complications (principal); E66.9 Obesity, unspecified; E78.1 Pure hyperglyceridemia; I10 Essential (primary) hypertension
CPT/HCPCS: 36415; 80053; 80061; 83036

== ENCOUNTER 2024-06-10 07:02 | Outpatient (CLI) | payer OTHER, SELFPAY ==
--- NOTE | ~2024-06-10 | XR_ITS ---
EXAMINATION: XR hand LT min 3V DATE: 06/10/2024 07:18 INDICATION: Left hand pain. TECHNIQUE: 3 views of left hand were obtained. COMPARISON: None. FINDINGS: Alignment is normal. No fracture. There is mild osteoarthritis of first carpometacarpal storm nt and first and third metacarpophalangeal joints and fifth distal interphalangeal joint. IMPRESSION: 1. Mild polyarticular osteoarthritis. Reviewed, dictated and finalized at location A.
== END 2024-06-10 07:03 | disposition home or self-care (01) ==
PROVIDERS: PCP Nurse Practitioner Family; Visit Provider Nurse Practitioner Family
DX: M19.042 Primary osteoarthritis, left hand (principal)
CPT/HCPCS: 73130

== ENCOUNTER 2024-09-07 08:36 | Outpatient (CLI) | payer OTHER, SELFPAY ==
[2024-09-07 09:40] LABS: Prothrombin Time 13.5 Seconds (11.1-14.7)
[2024-09-07 09:41] LABS: Partial Thromboplastin Time 27.6 Seconds (22.3-36.8)
[2024-09-07 12:06] LABS: Anion Gap 10 mmol/L (4-12); Blood Urea Nitrogen 26 mg/dL (9-20); Calcium 9.6 mg/dL (8.4-10.2); Carbon Dioxide 24 mmol/L (22-30); Chloride 106 mmol/L (98-107); Estimated Glomerular Filt Rate 51; Glucose 285 mg/dL (65-110); Potassium 4.4 mmol/L (3.4-5.0); Sodium 140 mmol/L (137-145)
== END 2024-09-07 08:37 | disposition home or self-care (01) ==
LOC: ANHSURGERY 08:40
PROVIDERS: Anesthesiology; PCP Nurse Practitioner Family; Visit Provider Plastic Surgery
DX: E11.9 Type 2 diabetes mellitus without complications (principal); N18.9 Chronic kidney disease, unspecified; Z01.818 Encounter for other preprocedural examination
CPT/HCPCS: 36415; 80048; 85610; 85730

== ENCOUNTER 2024-09-09 02:44 | Day surgery (SDC) | payer OTHER, SELFPAY ==
[2024-09-03 10:31] VITALS: BMI 31.6
--- NOTE | 2024-09-03 10:36 | PC.NURSE ---
Report to the Outpatient Waiting Room, entrance under the green pavilion located off [facility], at time _1100_ on date _[id number]_. Planned Procedure Time: _1pm_.? Time changes happen often and if your time is changed the preop area will call you the afternoon before. - You and your visitor will be asked to self-screen and do not enter if you have any COVID symptoms. Please call surgeon if you need to reschedule. - A mask is optional within the hospital at this time. May have clear liquids (water, carbonated beverages, clear teas, apple juice) until 5am with a maximum of 20 ounces. Nothing to drink after 5am. - No food from midnight until time of surgery and no smoking Take only the following medications with a SIP of water on the morning of surgery: ___Amlodipine, Metoprolol, Eye drops and Inhalers.____ DO NOT STOP ANY OF YOUR OTHER PRESCRIPTION MEDICATIONS PRIOR TO SURGERY EXCEPT THE FOLLOWING Medications to discontinue per physician ____Icosapent Date to take last izzl___[phone]____ Please contact Dr Walker's office to inquire if need to stop Clopidogrel and Aspirin prior to surgery. Please no make-up, nail estonian, hairspray, perfume, deodorant, or body powder the day of surgery.? No jewelry (including any body piercings) or valuables the day of surgery, leave them at home.? Please take a shower or bath the night before, or the morning of, surgery with an antibacterial soap.? Wear comfortable, loose fitting clothing.? - Jewelry must be removed prior to entering the operating room.? Rings and piercings that are not removed may be cut off. - The hospital will not accept responsibility for valuables.? - Please leave all valuables, including medications, at home the day of surgery. If you are going home after surgery, a licensed student truck driver must drive you home.? - NO public transportation without another adult if you receive anesthesia. - We recommend that an adult stay with you for 24 hours following discharge. - We also recommend that you do not drive, make important decision, drink alcoholic beverages, or take any drugs that were not prescribed by your health care provider for at least 24 hours after your discharge time. Follow any additional instructions given to you from your surgeon. Telephone instructions given to _Lee__and asked if any additional questions and then verbalized understanding. Patient advised to call surgeon office or pre surgery nurse liaison [phone] if any additional questions.
--- NOTE | 2024-09-09 06:59 | P.OP_ITS ---
Procedure Note - Detailed Date of Procedure 09/09/24 Pre-op Diagnosis Left Ring and Middle Trigger Finger Post-op Diagnosis Same (as well as Left ring finger tendon sheath mass/lesion) Procedure Performed left middle and ring finger a1 raghu release and left ring finger tendon sheath mass exicsion Surgeon Jf Walker MD Radial Router Operator radha prasad pa-c Anesthesia MAC Description of Procedure INFORMED CONSENT: The patient was seen and examined and marked in the pre-op area.? The patient signed the consent form. PROCEDURE IN DETAIL:The patient taken back to OR on the stretcher in supine position. Time out performed with anesthesia, surgeon and staff agreeing on patient's name site and surgery to be performed SCDs were placed on the lower extremities and inflated. A tourniquet was placed on {left} upper extremity and antibiotics given IV After anesthesia administered sedation I injected {5}cc 1%lido and 0.5% marcaine plain at the operative sites The?{left upper extremity}?was prepped and draped in sterile fashion the??{left upper extremity} was? exsanguinated with Esmarch bandage and tourniquet inflated to 250mmHg I proceeded with making a longitudinal incision over the left middle finger a1 raghu through skin and dermis with 15 blade scalpel. Littler scissors were used to spread down to the a1 raghu. The a1 raghu was incised with 15 blade scalpel initially then littler scissors were used to spread above and below the raghu proximally and distally and used to complete the transection entirely. Ragnell retractor was used to withdraw the fds and fdp tendons for inspection. They were free of masses and synovitis and gliding smoothly in the sheath w ithout triggering or crepitus. I irrigated with normal saline and closed with 4-0 chromic. Next I took my atention to the left ring finger. I proceeded with making a longitudinal incision over the left ring finger a1 raghu through skin and dermis with 15 blade scalpel. Littler scissors were used to spread down to the a1 raghu. There was an inflammatory cyst-like mass coming off the a1 raghu. this was sharply excised with 15 blade scalpel and sent for path. The a1 raghu was incised with 15 blade scalpel initially then littler scissors were used to spread above and below the raghu proximally and distally and used to complete the transection entirely. Ragnell retractor was used to withdraw the fds and fdp tendons for inspection. They were free of masses and synovitis and gliding smoothly in the sheath without triggering or crepitus. I irrigated with normal saline and closed with 4-0 chromic. A dressing of xeroform, 4x4, radha, and an jamarcus bandage was applied after the kelsey rniquet was let down noting the hand was warm and well perfused. The patient was then awaken from anesthesia and transferred to the recovery room in stable condition.? Complications - none EBL- 0cc Disposition - home in stable conditions Radha Prasad PA-C was essential for positioning, retraction, closure and dressing placement [facility] Billing Surgery - Charge Forward: Surgery Billing ([id number] same for radha adding modifier )
--- NOTE | 2024-09-09 06:59 | WPDHPUPDATE1 ---
History and Physical Update Update Date/Time: 09/09/24 06:59 Patient seen and examined in pre-operative holding area. No interval change in medical history or symptoms. Patient recalls previous discussion of benefits and alternatives to procedure. Continues to desire to proceed with left middle and ring finger a1 raghu release. Reviewed procedure, post-op expectations and risks including but not limited to bleeding, infection, injury to tendon/nerve/vessel, decreased hand function, stiffness, RSD, no change or worsening of symptoms. I discussed the possible use of assistants and their participation in the case. Patient stated understanding and signed the consent form wishing to proceed.
[2024-09-09 10:43] VITALS: BP 128/74; PULSE 73; RESP 18; TEMP 36.3; O2SAT 96
[2024-09-09 10:45] VITALS: BMI 32.1
[2024-09-09] MEDS: LACTATED RINGERS 1,000 ML 30 ML IV CONT (11:00)
[2024-09-09 11:17] LABS: Glucose Point of Care 190 mg/dl (65-105)
--- NOTE | 2024-09-09 11:35 | WPDANESEPPF ---
Anes - Initial Pre Proc Eval Procedure: Operation Date: 09/09/24 12:45 Proposed Procedures p Left Ring and Middle Trigger Finger Release - Jf Walker MD Date/Time: 09/09/24 11:35 Surgeon: Jf Walker MD Pre Op Diagnosis: Left Ring and Middle Trigger Finger Patient Data Age: 63 Gender: M Height: 1.78 m Weight: 101.6 kg Last Vital Signs Temp 97.4 F L 09/09/24 10:43 Pulse 73 09/09/24 10:43 Resp 18 09/09/24 10:43 BP 128/74 09/09/24 10:43 Pulse Ox 96 09/09/24 10:43 O2 Del Method Room Air 09/09/24 10:43 Allergies Allergy/AdvReac Type Severity Reaction Status Date / Time No Known Allergies Allergy Verified 09/09/24 11:05 Home Medications Medication Instructions Recorded Confirmed Type clopidogrel 75 mg tablet 75 mg PO DAILY 11/12/19 09/03/24 History aspirin 81 mg tablet,delayed 81 mg PO DAILY 07/03/21 09/03/24 History release metoprolol tartrate 25 mg tablet 12.5 mg PO BID 07/03/21 09/03/24 History metoprolol tartrate 50 mg tablet 50 mg PO Q12H 07/03/21 09/03/24 History prednisolone acetate 1 % eye 1 drp EACH EYE DAILY 10/24/21 09/03/24 History drops,suspension blood sugar diagnostic (Micro #50 ea 01/17/23 09/03/24 Rx Blood Glucose strips) blood-glucose meter #1 ea 01/17/23 09/03/24 Rx lancets (Accu-Chek Softclix #100 ea 01/17/23 09/03/24 Rx Lancets) albuterol sulfate 90 mcg/actuation 2 inh inhalation Q4H PRN shortness 02/15/23 09/03/24 Rx aerosol inhaler of breath or wheezing #8.5 grams amlodipine 5 mg tablet See Rx Instructions .Route 03/23/24 09/03/24 Rx .COMPLEX #90 tabs rosuvastatin 40 mg tablet 40 mg PO DAILY #90 tabs 03/23/24 09/03/24 Rx empagliflozin 25 mg tablet 25 mg PO DAILY #90 tabs 05/21/24 09/03/24 Rx (Jardiance) semaglutide 2 mg/dose (8 mg/3 mL) 2 mg (0.75 mL) subcut WEEKLY #9 mL 06/08/24 09/03/24 Rx subcutaneous pen injector (Ozempic) fluticasone 500 mcg-salmeterol 50 1 inh inhalation Q12H #60 ea 08/14/24 09/03/24 Rx mcg/dose blistr powdr for inhalation icosapent ethyl 1 gram capsule See Rx Instructions .Route 08/21/24 09/03/24 Rx .COMPLEX #360 caps gabapentin 300 mg capsule See Rx Instructions .Route 09/07/24 Rx .COMPLEX #30 caps Laboratory Tests 09/09/24 11:15 POC Capillary Glucose 190 H mg/dl (65-105) Patient hx anesthesia problems: none Family hx anesthesia problems: none Results Review: All pre-operative results and documents have been reviewed as part of the pre-operative evaluation. [facility] Past Medical History Medical History CKD (chronic kidney disease) COPD (chronic obstructive pulmonary disease) Coronary artery disease Diabetes History of heart attack Hx of skin cancer, basal cell Hyperlipidemia Hypertension Pancreatitis Surgical History Surgical History H/O cornea transplant History of cholecystectomy History of heart artery stent x2 stents History of thoracotomy Family History Family History Mother Hypertension Family history of diabetes mellitus in first degree relative Family history of heart disease in male family member before age 55 Father Family history of Parkinson's disease Family history of diabetes mellitus in first degree relative Social History Social History Social History: Caffeine-tea,soda,coffee Smoking packs per day: 2 Smoking cigarettes per day: 40.0 Years smoked: 35 Smoking pack-years: 70.00 Smoking status: Former smoker Tobacco type: cigarettes Second hand tobacco smoke exposure: No Smoking end date: 09/03/12 Alcohol intake: former Drinks per week: 2 Alcohol use details: beers Substance use: never Substance use type: does not use Last use: 2009 Do You Feel Safe in your Home?: Yes Lack of Transportation: No Lack of Food: Never True Current Housing: I Have Housing Concerned About Future Housing: No Difficulty Paying Gas/Electric Bills: No Difficulty Paying for Meds: No Currently Unemployed: No Education: Decline to Answer Difficulty w/ Childcare or Family Care: No Living arrangements: with family Occupation/Education: occupation Gender identity (if verbalized by the patient): Male Sexual Orientation (if Verbalized by the Patient): Straight or Heterosexual Spiritual care concerns: No Agree to blood products: Yes Anes - Eval Final PreProcedure Day of Procedure 09/09/24 11:35 Patient weight: obese Heart: regular rate and rhythm Lungs: clear to auscultation Airway: Mallampati scale and special considerations (Edentulous.) Neurological: alert and oriented Last oral intake: >/= 8 hours ASA classification: IV Emergent: no Anesthetic plan: proceed Anesthesia type and monitoring: general GIVS and standard monitoring Results Review: All pre-operative results and documents have been reviewed as part of the pre-operative evaluation. HTN, DM, GINO on CPAP, ex smoker quit 2009, CAD s/p PTCA 2009 and pt saw his clinical data assistant this year, no interval change since last stress test approx 2022. Informed Consent: The patient's anesthetic plan and its attendant risks and benefits were discussed with the patient/family/POA. Questions were solicited and answers provided to the satisfaction of the patient/family/POA.
[2024-09-09] MEDS: ceFAZolin 2 GM/D5W 50 ML 2 GM/50 ML BAG IVPB (12:23)
[2024-09-09] MEDS: LIDOCAINE HCL 1% LOCAL INJ 20 ML VIAL 10 ML INFILTRATE (12:33)
[2024-09-09] MEDS: BUPivacaine HCL 0.5% 10 ML AMP 5 ML INFILTRATE (12:34)
[2024-09-09 12:47] VITALS: BP 110/63; PULSE 83; RESP 16; O2SAT 96
[2024-09-09 13:15] VITALS: BP 109/70; PULSE 77; RESP 20
[2024-09-09 13:40] VITALS: BP 125/77; PULSE 73; RESP 20
== END 2024-09-09 13:49 | disposition home or self-care (01) ==
PROVIDERS: PCP Nurse Practitioner Family; Visit Provider Plastic Surgery
PROC: (CPT 26055; principal; 2024-09-09 12:45)
DX: M65.342 Trigger finger, left ring finger (principal); M65.332 Trigger finger, left middle finger; M67.844 Other specified disorders of tendon, left hand; I12.9 Hypertensive chronic kidney disease with stage 1 through stage 4 chronic kidney disease, or unspecified chronic kidney disease; E11.22 Type 2 diabetes mellitus with diabetic chronic kidney disease; N18.9 Chronic kidney disease, unspecified; I25.2 Old myocardial infarction; J44.9 Chronic obstructive pulmonary disease, unspecified; I25.10 Atherosclerotic heart disease of native coronary artery without angina pectoris; E78.5 Hyperlipidemia, unspecified; Z95.5 Presence of coronary angioplasty implant and graft; Z87.891 Personal history of nicotine dependence; E66.9 Obesity, unspecified; Z68.32 Body mass index [BMI] 32.0-32.9, adult; Z79.51 Long term (current) use of inhaled steroids; Z79.84 Long term (current) use of oral hypoglycemic drugs; Z79.85 Long-term (current) use of injectable non-insulin antidiabetic drugs
CPT/HCPCS: 26055; 26160; 82948; 88304; A9270; J0690; J2003; J2250; J2405; J2704; J3010; J7120

== ENCOUNTER 2024-12-02 09:38 | Outpatient (CLI) | payer OTHER, SELFPAY ==
[2024-12-02 10:16] LABS: Basophils Absolute Auto 0.1 K/mm3 (0.0-0.1); Basophils Percent Auto 1.2 % (0.2-1.2); Eosinophils Absolute Auto 0.4 K/mm3 (0-0.3); Eosinophils Percent Auto 4.8 % (0-4.4); Hematocrit 52.7 % (42.0-52.0); Hemoglobin 17.4 g/dL (14.0-18.0); Immature Granulocyte Absolute 0.04 K/mm3 (0.00-0.031); Immature Granulocyte Percent A 0.4 % (0-0.5); Lymphocytes Absolute Auto 1.79 K/mm3 (0.9-3.2); Lymphocytes Percent Auto 19.6 % (18.3-44.2); Mean Corpuscular Hemoglobin 29.2 pg (26-34); Mean Corpuscular Volume 88.4 fl (80-100); Mean Platelet Volume 11.3 fl (7.4-10.4); Monocytes Percent Auto 10.9 % (2.6-8.5); Neutrophils Absolute Auto 5.8 K/mm3 (1.3-6.7); Neutrophils Percent Auto 63.1 % (45.5-73.1); Platelet Count Result 171 k/mm3 (150-375); Red Blood Count 5.96 M/mm3 (4.6-6.20); White Blood Count 9.2 K/mm3 (4.5-10.0)
[2024-12-02 10:32] LABS: Alanine Aminotransferase 46 U/L (6-50); Albumin Level 4.3 g/dL (3.5-5.1); Alkaline Phosphatase 57 U/L (38-126); Anion Gap 10 mmol/L (4-12); Aspartate Amino Transferase 35 U/L (17-59); Blood Urea Nitrogen 24 mg/dL (9-20); Calcium 9.8 mg/dL (8.4-10.2); Carbon Dioxide 26 mmol/L (22-30); Chloride 105 mmol/L (98-107); Cholesterol 145 mg/dL (0-200); Estimated Glomerular Filt Rate 53; Glucose 158 mg/dL (65-110); HDL Direct 37 mg/dL; Potassium 4.9 mmol/L (3.4-5.0); Sodium 141 mmol/L (137-145); Triglycerides 415 mg/dL (<150)
[2024-12-02 10:34] LABS: Creatinine Urine 45.4 mg/dL
[2024-12-02 10:43] LABS: LDL Cholesterol Direct 42 mg/dL
--- OUTSIDE RECORDS SUMMARY | 2024-12-02 10:43 | XMS_ITS | Clinical Summary ---
Author Organization [facility] Address [address] [place] [address] Care Team Providers Care Tank Crewmember Name Role Phone Babak Pickens DO Primary Care Provider [phone] Allergies No known active allergies Medications metoprolol succinate ER 25 MG 24 hr tablet Take 12.5 mg by mouth 2 (two) times a day. Active metoprolol succinate ER 50 MG 24 hr tablet Take by mouth 2 (two) times a day. Active glipiZIDE XL 2.5 MG 24 hr tablet Take 2.5 mg by mouth daily with breakfast. Do not break or crush tablet Active fenofibrate 145 MG tablet Take 145 mg by mouth daily. Active clopidogrel 75 MG tablet Take 75 mg by mouth daily. Active atorvastatin 40 MG tablet Take 40 mg by mouth nightly at bedtime. Active amLODIPine 5 MG tablet Take 5 mg by mouth daily. Active aspirin EC (ASPIRIN EC) 81 MG tablet Take 81 mg by mouth daily. Active fluticasone-elvia meterol (WIXELA INHUB) 250-50 MCG/DOSE inhaler Inhale 1 puff into the lungs 2 (two) times daily. 10/15/2019 Active BESIVANCE 0.6 % Suspension ophthalmic suspension SHAKE LIQUID AND INSTILL 1 DROP IN RIGHT EYE THREE TIMES DAILY. BEGIN DROP 2 DAYS BEFORE SURGERY 10/12/2020 Active JARDIANCE 10 MG tablet Take 10 mg by mouth daily. 10/12/2020 Active metoprolol tartrate 25 MG tablet 10/12/2020 Active Social History Tobacco Use Types Packs/Day Years Used Date Smoking Tobacco: Former Smokeless Tobacco: Never Alcohol Use Standard Drinks/Week Comments Not Currently 0 (1 standard drink = 0.6 oz pur e alcohol) Sex and Gender Information Value Date Recorded Sex Assigned at Not on file Legal Sex Male 10:17 PM DERRICK BOAT RUNNER Gender Identity Not on file Sexual Orientation Not on file Last Filed Vital Signs Vital Sign Reading Time Taken Comments Blood Pressure 110/59 10/17/2020 9:00 AM DERRICK BOAT RUNNER Pulse 83 10/17/2020 8:45 AM DERRICK BOAT RUNNER Temperature 37.1 C (98.8 F) 10/17/2020 6:36 AM DERRICK BOAT RUNNER Respiratory Rate 18 10/17/2020 8:45 AM DERRICK BOAT RUNNER Oxygen Saturation 95% 10/17/2020 9:00 AM DERRICK BOAT RUNNER Inhaled Oxygen Concentration - - Weight 106.6 kg (235 lb) 10/10/2020 9:54 AM DERRICK BOAT RUNNER Height 175.3 cm (5' 9 ) 10/10/2020 9:54 AM DERRICK BOAT RUNNER Body Mass Index 34.7 10/10/2020 9:54 AM DERRICK BOAT RUNNER Plan of Treatment Health Maintenance Due Date Last Done Comments Colorectal Cancer Screening Colonoscopy (10 Years) 1960 Annual Physical 1963 Hepatitis C 1978 DTaP, Tdap and Td Vaccines ( 1 - Tdap) 1979 Zoster Vaccines (1 of 2) 2010 COVID-19 Vaccine ( - 2023-2 5 season) 2024 Influenza Adult (#1) 2024 06/30/2020 RSV Immunization or 60+ Years (1 - 1-dose 75+ series) 2035 Meningococcal B Vaccine Aged Out No l onger eligible based on patient's age to complete this topic Meningococcal Vaccine Aged Out No rudy renetta eligible based on patient's age to complete this topic Pneumococcal Vaccine: Pediat rics (0 to 5 Years) and At-Risk Patients (6 to 64 Years) Aged Out No longer eligi ble based on patient's age to complete this topic RSV Immunizations Under 20 Months Aged Out No longer eligible based on patient's age to complete this topic Medical Devices Implanted Type Area Equipment Mechanic Specialist Device Identifier Shelf Expiration Date Model / Serial / Lot Iol [employer] Zcboo - [id number] Implanted:Qty: 1 on 07/18/2020 by Galileo Gee MD at [facility] Lens Left: Eye [employer] 07/24/2023 [id number] / / [id number] Iol [employer]ision Zcboo - [id number] Implanted:Qty: 1 on 09/12/2020 by Galileo Gee MD at [facility] Lens Right: Eye [employer] 05/01/2022 [id number] / [id number] / Corneal Tissue (Dmek) Implanted:Qty: 1 on 09/12/2020 by Galileo Gee MD at [facility] Tissue Right: Eye 09/18/2020 Description:DIN: [id number] 20 00 [id number] Product Code: [id number] FIN(P): [id number] Corneal Tissue Dmek Implanted:Qty: 1 on 07/18/2020 by Galileo Gee MD at [facility] Left: Eye 07/28/2020 / [id number] Cornea- Posterior Layer Implanted:Qty: 1 on 10/17/2020 by Galileo Gee MD at [facility] Right: Eye 10/27/2020 / / [id number] Care Teams Tank Crewmember Relationship Specialty Start Date End Date Babak Pickens DO [address] [address] PCP - General INTERNAL MEDICINE 07/11/20
--- OUTSIDE RECORDS SUMMARY | 2024-12-02 10:43 | XMS_ITS | Referral Summary ---
Author Organization [facility] [address] Address [address] [place] [address] Care Team Providers Care Tar Distillation Supervisor Name Role Phone Jayden Duarte MD Unavailable Pierre Gee MD Primary Care Provider [phone] Encounters Date Type Department Care Team Description 10/08/2024 1:45 PM RESIDENT ENGINEER Office Visit [facility] Cardiology [address] [place] [address] Jayden Duarte MD Cardiomyopathy, hypertrophic (CMS/HCC) (HCC) (Primary Dx); Coronary artery disease involving [place] coronary artery of [place] heart without angina pectoris; Essential hypertension, benign; 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; Hyperlipidemia LDL goal <70; Obstructive sleep apnea from Last 3 Months Allergies Active Allergy Reactions Criticality Noted Date Comments Propoxyphene Redness,Rash Medium 05/05/2018 Medications aspirin (ASPIRIN LOW DOSE) 81 mg tablet take 1 tablet (81MG) by oral route every day 0 2 Active nitroglycerin (NITROSTAT) 0.[address] 1 tablet (0.4MG) by sublingual route at the 1st sign of attack; may repeat every 5 min until relief; if pain persists after 3 tablets in 15 min, prompt medical attention is recommended 0 2 Active amLODIPine (NORVASC) 5 mg tablet Take 1 tablet (5 mg total) by mouth daily Active empagliflozin (JARDIANCE) 10 mg tabletIndicatio ns:type 2 diabetes mellitus Take 1 tablet (10 mg total) by mouth daily Active icosapent ethyL (VASCEPA) 1 gram capsule Take 2 capsules (2 g total) by mouth 2 (two) times a day 1 Active rosuvastatin (CRESTOR) 40 mg tabletIndicatio ns:Coronary artery disease involving [place] coronary artery of [place] heart without angina pectoris,Hyperl ipidemia LDL goal <70 Take 1 tablet (40 mg total) by mouth daily 30 tablet 11 2 Active gabapentin (NEURONTIN) 300 mg capsule TAKE 1 CAPSULE BY MOUTH EVERY DAY AT BEDTIME 3 Active Advair Diskus 500-50 mcg/dose diskus inhaler INHALE 1 PUFF BY MOUTH EVERY 12 HOURS 3 Active predniSONE (DELTASONE) 20 mg tablet Take 2 tablets (40 mg) by mouth daily 3 Active metoprolol tartrate (LOPRESSOR) 25 mg immediate release tablet TAKE 1/2 TABLET(12.5 MG) BY MOUTH TWICE DAILY 90 tablet 1 4 Active metoprolol tartrate (LOPRESSOR) 50 mg immediate release tablet TAKE 1 TABLET(50 MG) BY MOUTH TWICE DAILY 180 tablet 2 4 Active Ozempic 2 mg/dose (8 mg/3 mL) pen injector injection 4 Active clopidogreL (PLAVIX) 75 mg tablet TAKE 1 TABLET(75 MG) BY MOUTH DAILY 90 tablet 3 4 Active Active Problems Problem Noted Date Diagnosed Date 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 10/27/2019 Dyslipidemia 01/07/2019 Obstructive sleep apnea 10/03/2017 Coronary artery disease invo lving [place] coronary artery of [place] heart without angina pectoris 03/25/2017 Essential hypertension, benign 03/25/2017 Hyperlipidemia LDL goal <70 03/25/2017 Cardiomyopathy, hypertrophic (CMS/HCC) 7 History of tobacco abuse 03/25/2017 Chronic obstructive pulmonary disease 03/25/2017 Social History Tobacco Use Types Packs/Day Years Used Date Smoking Tobacco: Former Cigarettes Q uit: 10/03/2010 Smokeless Tobacco: Never Tobacco Cessation:Counseling Given: Not Answered Comments:Smoking History Packs/day: 0.5 Packs Alcohol Use Standard Drinks/Week Comments No 0 (1 standard drink = 0.6 oz pur e alcohol) Sex and Gender Information Value Date Recorded Sex Assigned at Not on file Legal Sex Male 6:59 AM RESIDENT ENGINEER Gender Identity Not on file Sexual Orientation Not on file Last Filed Vital Signs Vital Sign Reading Time Taken Comments Blood Pressure 110/74 10/08/2024 1:49 PM RESIDENT ENGINEER Pulse 83 10/08/2024 1:49 PM RESIDENT ENGINEER Temperature - - Respiratory Rate - - Oxygen Saturation 95% 10/08/2024 1:49 PM RESIDENT ENGINEER Inhaled Oxygen Concentration - - Weight 103 kg (227 lb) 10/08/2024 1:49 PM RESIDENT ENGINEER Height 175.3 cm (5' 9 ) 10/08/2024 1:49 PM RESIDENT ENGINEER Body Mass Index 33.52 10/08/2024 1:49 PM RESIDENT ENGINEER Plan of Treatment Not on file Insurance [facility] Care Teams Tar Distillation Supervisor Relationship Specialty Start Date End Date Pierre Gee MD [address] [facility] [address] [id number] PCP - General Family Practice 07/26/23 Jayden Duarte MD [address] [facility] [address] [address] Cardiology 03/09/17
--- OUTSIDE RECORDS SUMMARY | 2024-12-02 10:43 | XMS_ITS | Encounter Summary ---
Author Organization [facility] Address [facility] [place] [address] Care Team Providers Care Detective Narcotics And Vice Name Role Phone Babak Pickens DO Primary Care Provider [phone] Encounter Details Date Type Department Care Team (Late st Contact Info) Description 10/10/2020 Prep for Procedure [facility] [address] [place] [address] Galileo Gee MD [address] [facility] [address] [address] Social History Tobacco Use Types Packs/Day Years Used Date Smoking Tobacco: Former Smokeless Tobacco: Never Alcohol Use Standard Drinks/Week Comments Not Currently 0 (1 standard drink = 0.6 oz pur e alcohol) Sex and Gender Information Value Date Recorded Sex Assigned at Not on file Legal Sex Male 10:17 PM MOTOR SETTER Gender Identity Not on file Sexual Orientation Not on file COVID-19 Exposure Response Date Recorded In the last month, have you been in contact with someone who was confirmed or suspected to have Coronavirus / COVID-19? No / Unsure 09/12/2020 8:30 AM MOTOR SETTER documented as of this encounter Plan of Treatment Not on file documented as of this encounter Visit Diagnoses Diagnosis Preop testing- Primary Preoperative examination, unspecified documented in this encounter Additional Health Concerns Infection Onset Date Last Indicated Resolved Time COVID-19 Rule Out 10/15/2020 10/15/2020 10/15/2020 6:14 PM MOTOR SETTER COVID-19 Rule Out 10/15/2020 10/15/2020 10/16/2020 2:06 PM MOTOR SETTER documented as of this encounter Care Teams Detective Narcotics And Vice Relationship Specialty Start Date End Date Babak Pickens DO [address] [id number] PCP - General INTERNAL MEDICINE 07/11/20 documented as of this encounter
--- OUTSIDE RECORDS SUMMARY | 2024-12-02 10:43 | XMS_ITS | Continuity of Care Document ---
Author Organization [facility] Address [address] [facility] [address] [place] [address] Phone Care Team Providers Care Dean Of Students Name Role Phone James Marsh Unavailable Unavailable Procedures Procedure Date Eye Exam, New Patient Advance Directives Directive Yes / No Effective Date File Name No Information Encounters Encounter Description Practice Location Reason(s) For Visit Diagnoses Date Provider Providers Copied on Encounter [facility], [address], [place], [place], [id number], [place] tel:[phone] [facility] No Information 5-[address] Salma Ramirez. [address] , [address], [place], [address], [place]. tel:[phone] Referring Provider: Juan White MD C, [address], [place], [address]. tel:[phone] Family History Family Member Type Diagnosis Age At Onset No Information Payers Payer name Insurance type Covered constitution party ID Authoriza tion(s) No Information Social History Type Description Quantity Date Captured Comments Sex Male Smoking Status No Information Chief Complaint And Reason For Visit No Information Reason For Referral Reason For Referral No Information History Of Present Illness Encounter Date Complaint History Of Prese nt Illness No Information Functional Status Date Functional Assessmen t No Information Instructions Date Instruction Additional Infor mation No Information Assessments Type Assessment Date No Information Patient Care Teams Name Effective Dates (start - stop) Status Members No Information
--- OUTSIDE RECORDS SUMMARY | 2024-12-02 10:43 | XMS_ITS | Clinical Summary ---
Author Organization [facility] Address [address] [place] [address] Care Team Providers Care Drug Purchaser Name Role Phone Juan White MD Primary Care Provider + Allergies Active Allergy Reactions Criticality Noted Date Comments Propoxyphene Rash Low 05/05/2018 Medications aspirin (ASPIRIN LOW DOSE) 81 mg Tablet, Delayed Release (E.C.) Take 81 mg by mouth daily. 2 Active lisinopril (PRINIVIL) 20 mg tablet Take 20 mg by mouth daily. 6 Active JANUVIA 100 mg Tablet Take 100 mg by mouth daily. 0 8 Active atorvastatin (LIPITOR) 40 mg tablet Take 40 mg by mouth daily. 8 Active clopidogrel (PLAVIX) 75 mg Tablet Take 75 mg by mouth daily. 0 8 Active niacin (NIASPAN ER) 1,000 mg Extended Release 24 hour tablet Take 1,000 mg by mouth daily. 5 8 Active metoprolol tartrate (LOPRESSOR) 25 mg tablet Take 12.5 mg by mouth 2 times daily . 8 Active metoprolol tartrate (LOPRESSOR) 50 mg tablet Take 50 mg by mouth 2 times daily. 8 Active glipiZIDE (GLUCOTROL XL) 2.5 mg Extended Release 24 hour tablet Take 2.5 mg by mouth daily. 2 8 Active fenofibrate nanocrystallized (TRICOR) 145 mg tablet Take 145 mg by mouth daily. Active Active Problems Problem Noted Date Diagnosed Date Eosinophilia 01/27/2018 Family History Medical History Relation Name Comments Thyroid Disease Father Diabetes Maternal Grandfather High Cholesterol Maternal Grandfather Hypertension Maternal Grandfather Diabetes Maternal Grandmother Heart Disease Maternal Grandmother High Cholesterol Maternal Grandmother Hypertension Maternal Grandmother Diabetes Mother Heart Disease Mother High Cholesterol Mother Hypertension Mother Relation Name Status Comments Father Maternal Grandfather Maternal Grandmother Mother Social History Tobacco Use Types Packs/Day Years Used Date Smoking Tobacco: Former Cigarettes Q uit: 2010 Smokeless Tobacco: Never Alcohol Use Standard Drinks/Week Comments No 0 (1 standard drink = 0.6 oz pur e alcohol) Sex and Gender Information Value Date Recorded Sex Assigned at Not on file Legal Sex Male 2:07 PM CDT Gender Identity Not on file Sexual Orientation Not on file Last Filed Vital Signs Vital Sign Reading Time Taken Comments Blood Pressure 124/78 08/04/2018 10:45 AM CDT Pulse 66 08/04/2018 10:45 AM CDT Temperature 36.9 C (98.4 F) 08/04/2018 10:45 AM CDT Respiratory Rate 18 08/04/2018 10:45 AM CDT Oxygen Saturation 92% 08/04/2018 10:45 AM CDT Inhaled Oxygen Concentration - - Weight 116.1 kg (256 lb) 08/04/2018 10:45 AM CDT Height 175.3 cm (5' 9 ) 08/04/2018 10:45 AM CDT Body Mass Index 37.8 08/04/2018 10:45 AM CDT Plan of Treatment Health Maintenance Due Date Last Done Comments PNEUMOCOCCAL VACCINE 0-64 YEARS (1 of 2 - PCV) 967 DTAP/TDAP/TD VACCINES (1 - Tdap) 1979 COLORECTAL SCREENING 2005 Colorectal Cancer Screening 2005 FIT-DNA Q 3 years 2005 FIT/FOBT Q 1 year 2005 Flex Sig/CT Colonography Q 5 years 2005 ZOSTER VACCINE (1 of 2) 2010 RSV VACCINE (60+ or ) (1 - Risk 60-74 years 1-dose series) 2020 INFLUENZA VACCINE (#1) 2024 Insurance [employer] PPO [id number] Care Teams Drug Purchaser Relationship Specialty Start Date End Date Juan White MD [address] [place] [address] PCP - General Internal Medicine 01/27/18
--- OUTSIDE RECORDS SUMMARY | 2024-12-02 10:43 | XMS_ITS | Encounter Summary ---
Author Organization [facility] Address [facility] [place] [address] Care Team Providers Care Dredge Boat Engineer Name Role Phone Babak Pickens DO Primary Care Provider [phone] Encounter Details Date Type Department Care Team (Late st Contact Info) Description 09/06/2020 Prep for Procedure [facility] Day Services [address] [place] [address] Galileo Gee MD [address] [facility] [address] [address] Social History Tobacco Use Types Packs/Day Years Used Date Smoking Tobacco: Former Smokeless Tobacco: Never Alcohol Use Standard Drinks/Week Comments Not Currently 0 (1 standard drink = 0.6 oz pur e alcohol) Sex and Gender Information Value Date Recorded Sex Assigned at Not on file Legal Sex Male 10:17 PM TELEVISION ANNOUNCER Gender Identity Not on file Sexual Orientation Not on file COVID-19 Exposure Response Date Recorded In the last month, have you been in contact with someone who was confirmed or suspected to have Coronavirus / COVID-19? No / Unsure 09/09/2020 7:48 AM TELEVISION ANNOUNCER documented as of this encounter Plan of Treatment Not on file documented as of this encounter Results * PRE-SURGICAL/PRE-PROCEDURE CORONAVIRUS (COVID 19) (09/09/2020 8:03 AM TELEVISION ANNOUNCER) CORONAVIRUS SARS COV 2 PCR (RESP) NOT DETECTED NOT DETECTED 09/11/2020 9:46 AM TELEVISION ANNOUNCER [facility] Comment: A Not Detected (negative) test result for this test means that SARS- CoV-2 RNA was not present in the specimen above the limit of detection. A negative result does not rule out the possibility of COVID-19 and should not be used as the sole basis for treatment or patient management decisions. If COVID-19 is still suspected, based on exposure history together with other clinical findings, re-testing should be considered in consultation with public health authorities. Laboratory test results should always be considered in the context of clinical observations and epidemiological data in making a final diagnosis and patient management decisions. Please review the Fact Sheets and FDA authorized labeling available for health care providers and patients using the following websites: https://www.BuzzFeed.NovelMed Therapeutics/home/Covid-19/HCP/QuestIVD/fact- sheet.html https://www.BuzzFeed.NovelMed Therapeutics/home/Covid-19/Patients/ QuestIVD/fact-sheet.html This test has been authorized by the FDA under an Emergency Use Authorization (EUA) for use by authorized laboratories. Due to the current public health emergency, [employer] is receiving a high volume of samples from a wide variety of swabs and media for COVID-19 testing. In order to serve patients during this public health crisis, samples from appropriate clinical sources are being tested. Negative test results derived from specimens received in non-commercially manufactured viral collection and transport media, or in media and sample collection kits not yet authorized by FDA for COVID-19 testing should be cautiously evaluated and the patient potentially subjected to extra precautions such as additional clinical monitoring, including collection of an additional specimen. Methodology: Nucleic Acid Amplification Test (NAAT) includes RT-PCR or TMA Additional information about COVID-19 can be found at the [employer] website: www.Theravasc.NovelMed Therapeutics/Covid19. Test performed at [facility] [address] [address] Director: ARELY GRIGGS DO,MPH FIRST TEST NO 09/09/2020 7:49 AM [facility] EMPLOYED IN HEALTHCARE UNKNOWN 09/09/2020 7:49 AM [facility] SYMPTOMATIC DEFINED BY CDC NO 09/09/2020 7:49 AM [facility] DATE OF SYMPTOM ONSET UNKNOWN 09/09/2020 8:33 AM [facility] HOSPITALIZATION STATUS NO 09/09/2020 7:49 AM TELEVISION ANNOUNCER [facility] PATIENT IN ICU NO 09/09/2020 7:49 AM TELEVISION ANNOUNCER [facility] RESIDENT OF CONGREGATE CARE UNKNOWN 09/09/2020 7:49 AM TELEVISION ANNOUNCER [facility] UNKNOWN 09/09/2020 8:33 AM TELEVISION ANNOUNCER [facility] PATIENT'S RACE WHITE OR 09/09/2020 7:49 AM TELEVISION ANNOUNCER [facility] ETHNICITY NONHISPANIC 09/09/2020 7:49 AM TELEVISION ANNOUNCER [facility] SOURCE (QST) NASOPHARYNGEAL SWAB 09/09/2020 7:49 AM TELEVISION ANNOUNCER [facility] NASOPHARYNGEAL SWAB / Unknown 09/09/2020 8:03 AM TELEVISION ANNOUNCER us Galileo Gee MD MICROBIOLOGY - GENERAL ORDERA BLE Final Result [facility] [address] [place] [address], [facility] [facility] [id number] [place] [address], documented in this encounter Visit Diagnoses Diagnosis Preop testing- Primary Preoperative examination, unspecified documented in this encounter Additional Health Concerns Infection Onset Date Last Indicated Resolved Time COVID-19 Rule Out 09/09/2020 09/09/2020 09/11/2020 9:46 AM TELEVISION ANNOUNCER COVID-19 Rule Out 10/15/2020 10/15/2020 10/15/2020 6:14 PM TELEVISION ANNOUNCER COVID-19 Rule Out 10/15/2020 10/15/2020 10/16/2020 2:06 PM TELEVISION ANNOUNCER documented as of this encounter Care Teams Dredge Boat Engineer Relationship Specialty Start Date End Date Babak Pickens DO [address] [facility] [employer] [address] [address] PCP - General INTERNAL MEDICINE 07/11/20 documented as of this encounter
--- OUTSIDE RECORDS SUMMARY | 2024-12-02 10:43 | XMS_ITS | Encounter Summary ---
Author Organization [facility] Address [address] [place] [address] Care Team Providers Care Dismantler Name Role Phone Babak Pickens DO Primary Care Provider [phone] Encounter Details Date Type Department Care Team (Late st Contact Info) Description 07/11/2020 Prep for Procedure [facility] Day Services [address] [place] [address] Galileo Gee MD [address] [facility] [address] [address] Social History Tobacco Use Types Packs/Day Years Used Date Smoking Tobacco: Former Smokeless Tobacco: Never Alcohol Use Standard Drinks/Week Comments Not Currently 0 (1 standard drink = 0.6 oz pur e alcohol) Sex and Gender Information Value Date Recorded Sex Assigned at Not on file Legal Sex Male 10:17 PM BOBBIN HAULER Gender Identity Not on file Sexual Orientation Not on file documented as of this encounter Plan of Treatment Not on file documented as of this encounter Results * PRE-SURGICAL/PRE-PROCEDURE CORONAVIRUS (COVID 19) (07/15/2020 9:29 AM CDT) CORONAVIRUS SARS COV 2 PCR (RESP) NOT DETECTED NOT DETECTED 07/17/2020 9:46 AM CDT [facility] Comment: A Not Detected (negative) test result [...] providers and patients using the following websites: https://www.Hydrocision.MIKESTAR/home/Covid-19/HCP/NAAT/fact-sheet2 https://www.Hydrocision.MIKESTAR/home/Covid-19/Patients/NAAT/ fact-sheet2 This test has been authorized by the FDA under an Emergency Use Authorization (EUA) for use by authorized laboratories. Due to the current public health emergency, [employer] is receiving a high volume of samples [...] Methodology: Nucleic Acid Amplification Test (NAAT) includes PCR or TMA Additional information about COVID-19 can be found at the [employer] website: www.Hitlab/Covid19. Test performed at [facility] [place] [id number] [place] [phone] Director: ARELY GRIGGS DO,MPH FIRST TEST YES 07/15/2020 9:17 AM T [facility] EMPLOYED IN HEALTHCARE NO 07/15/2020 9:17 AM T [facility] SYMPTOMATIC DEFINED BY CDC NO 07/15/2020 9:17 AM T [facility] DATE OF SYMPTOM ONSET NON-APPLICABLE 07/15/2020 2:33 PM CDT [facility] HOSPITALIZATION STATUS NO 07/15/2020 9:17 AM CDT [facility] PATIENT IN ICU NO 07/15/2020 9:17 AM CDT [facility] RESIDENT OF CONGREGATE CARE NO 07/15/2020 9:17 AM CDT [facility] NO 07/15/2020 2:33 PM CDT [facility] PATIENT'S RACE WHITE OR 07/15/2020 9:17 AM CDT [facility] ETHNICITY NONHISPANIC 07/15/2020 9:17 AM CDT [facility] SOURCE (QST) NASOPHARYNGEAL SWAB 07/15/2020 9:17 AM CDT [facility] NASOPHARYNGEAL SWAB / Unknown 07/15/2020 9:29 AM CDT us Galileo Gee MD MICROBIOLOGY - GENERAL ORDERA BLES Final Result [facility] [address] [place] [address], [facility] [id number] [place] [address], documented in this encounter Visit Diagnoses Diagnosis Preoperative clearance- Primary Preoperative examination, unspecified documented in this encounter Additional Health Concerns Infection Onset Date Last Indicated Resolved Time COVID-19 Rule Out 07/15/2020 07/15/2020 07/17/2020 9:46 AM CDT COVID-19 Rule Out 09/09/2020 09/09/2020 09/11/2020 9:46 AM BOBBIN HAULER COVID-19 Rule Out 10/15/2020 10/15/2020 10/15/2020 6:14 PM BOBBIN HAULER COVID-19 Rule Out 10/15/2020 10/15/2020 10/16/2020 2:06 PM BOBBIN HAULER documented as of this encounter Care Teams Dismantler Relationship Specialty Start Date End Date Babak Pickens DO [address] [address] PCP - General INTERNAL MEDICINE 07/11/20 documented as of this encounter
--- OUTSIDE RECORDS SUMMARY | 2024-12-02 10:44 | XMS_ITS | Clinical Summary ---
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 10/27/2019 Dyslipidemia 01/07/2019 Obstructive sleep apnea 10/03/2017 Coronary artery disease invo lving gulkana coronary artery of gulkana heart without angina pectoris 03/25/2017 Essential hypertension, benign 03/25/2017 Hyperlipidemia LDL goal <70 03/25/2017 Cardiomyopathy, hypertrophic (CMS/HCC) 7 History of tobacco abuse 03/25/2017 Chronic obstructive pulmonary disease 03/25/2017 Encounters Date Type Department Care Team Description 10/08/2024 1:45 PM PRENATAL TEACHER Office Visit [facility] Cardiology [address] [place] [address] Jayden Duarte MD Cardiomyopathy, hypertrophic (CMS/HCC) (HCC) (Primary Dx); 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; Essential hypertension, benign; 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; Hyperlipidemia LDL goal <70; Obstructive sleep apnea from Last 3 Months Surgical History Surgery Date Site/Laterality Comments OTHER SURGICAL HISTORY Left Knee Surgery 1980,, Medical History Medical History Date Comments Pneumonia Pneumonia Adiposity Obesity Family History Medical History Relation Name Comments Heart attack Mother 2 Myocardial Infa rction; Heart failure Mother 2 Congestive Hea rt Failure; Cause of : Congestive Heart Failure Relation Name Status Comments Mother 1 (Age 70) Mother 2 Social History Tobacco Use Types Packs/Day Years Used Date Smoking Tobacco: Former Cigarettes Q uit: 10/03/2010 Smokeless Tobacco: Never Tobacco Cessation:Counseling Given: Not Answered Comments:Smoking History Packs/day: 0.5 Packs Alcohol Use Standard Drinks/Week Comments No 0 (1 standard drink = 0.6 oz pur e alcohol) Sex and Gender Information Value Date Recorded Sex Assigned at Not on file Legal Sex Male 6:59 AM PRENATAL TEACHER Gender Identity Not on file Sexual Orientation Not on file Obstetrics History Last Filed Vital Signs Vital Sign Reading Time Taken Comments Blood Pressure 110/74 10/08/2024 1:49 PM PRENATAL TEACHER Pulse 83 10/08/2024 1:49 PM PRENATAL TEACHER Temperature - - Respiratory Rate - - Oxygen Saturation 95% 10/08/2024 1:49 PM PRENATAL TEACHER Inhaled Oxygen Concentration - - Weight 103 kg (227 lb) 10/08/2024 1:49 PM PRENATAL TEACHER Height 175.3 cm (5' 9 ) 10/08/2024 1:49 PM PRENATAL TEACHER Body Mass Index 33.52 10/08/2024 1:49 PM PRENATAL TEACHER Plan of Treatment Health Maintenance Due Date Last Done Comments Colon Cancer Screening-Colonoscopy 1960 Depression Screening 1960 Hepatitis C Screening 1960 Prostate Cancer Screening-PSA 1960 Pneumococcal vaccine <65 (1 of 2 - PCV) 1966 DTaP/Tdap/Td Vaccine (1 - Tdap) 1971 Hepatitis B Screening 1978 Regular Well Visit/Exam 18-64 1978 Zoster Vaccine (1 of 2) 2010 Influenza Vaccine (#1) 2024 9, 08/30/2013, 11/01/2012, Additional history exists Insurance [facility] Care Teams Veneer Jointer Operator Relationship Specialty Start Date End Date Pierre Gee MD [address] [place] [address] [address] PCP - General Family Practice 07/26/23 Jayden Duarte MD [address] [place] [address] [address] Cardiology 03/09/17
[2024-12-02 10:55] LABS: MALB Creatinine Ratio 458.8 mg/g (0-30); Microalbumin Urine Random 208.3 mg/L (0-16.7)
[2024-12-02 11:07] LABS: Hemoglobin A1C 7.6 % (<5.7)
== END 2024-12-02 09:39 | disposition home or self-care (01) ==
LOC: ANHLAB 09:40
PROVIDERS: PCP Nurse Practitioner Family; Visit Provider Nurse Practitioner Family
DX: E11.9 Type 2 diabetes mellitus without complications (principal); I10 Essential (primary) hypertension; E78.1 Pure hyperglyceridemia; E66.9 Obesity, unspecified; G47.33 Obstructive sleep apnea (adult) (pediatric)
CPT/HCPCS: 36415; 80053; 80061; 82043; 83036; 85025

== ENCOUNTER 2025-05-12 10:48 | Outpatient (CLI) | payer OTHER, SELFPAY ==
--- OUTSIDE RECORDS SUMMARY | 2025-05-12 10:57 | XMS_ITS | Clinical Summary ---
Author Organization [facility] Address [address] [place] [address] Care Team Providers Care Engineer Fishing Vessel Name Role Phone Juan White MD Primary [...] 10:45 AM CDT Height 175.3 cm (5' 9) 08/04/2018 10:45 AM CDT Body Mass Index 37.8 08/04/2018 10:45 AM CDT Plan of Treatment Health Maintenance Due Date Last Done Comments DTAP/TDAP/TD VACCINES (1 - Tdap) 1979 COLORECTAL SCREENING 2005 Colorectal Cancer Screening 2005 FIT-DNA Q 3 years 2005 FIT/FOBT Q 1 year 2005 Flex Sig/CT Colonography Q 5 years 2005 ZOSTER VACCINE (1 of 2) 2010 RSV VACCINE (60+ or ) (1 - Risk 60-74 years 1-dose series) 2020 INFLUENZA VACCINE (#1) 2025 Insurance [facility] OPTIONS PPO [id number] Care Teams Engineer Fishing Vessel Relationship Specialty Start Date End Date Juan White MD [address] [place] [address] PCP - General Internal Medicine 01/27/18
--- OUTSIDE RECORDS SUMMARY | 2025-05-12 10:57 | XMS_ITS | Encounter Summary ---
Author Organization [facility] Address [address] [place] [address] Care Team Providers Care Baffle Installer Name Role Phone Babak Pickens DO Primary Care Provider [phone] Encounter Details Date Type Department Care Team (Late st Contact Info) Description 07/11/2020 Prep for Procedure [facility] One Day Services [address] [place] [address] Galileo Gee MD [address] [facility] [address] [address] Social History Tobacco Use Types Packs/Day Years Used Date Smoking Tobacco: Former Smokeless Tobacco: Never Alcohol Use Standard Drinks/Week Comments Not Currently 0 (1 standard drink = 0.6 oz pur e alcohol) Sex and Gender Information Value Date Recorded Sex Assigned at Not on file Legal Sex Male 10:17 PM BINDER SELECTOR Gender Identity Not on file Sexual Orientation Not on file documented as of this encounter Plan of Treatment Not on file documented as of this encounter Results * PRE-SURGICAL/PRE-PROCEDURE CORONAVIRUS (COVID 19) (07/15/2020 9:29 AM CDT) CORONAVIRUS SARS COV 2 PCR (RESP) NOT DETECTED NOT DETECTED 07/17/2020 9:46 AM CDT [facility] Comment: A Not Detected (negative) test [...] providers and patients using the following websites: https://www.DivvyHQ.Koalify/home/Covid-19/HCP/NAAT/fact-sheet2 https://www.DivvyHQ.Koalify/home/Covid-19/Patients/NAAT/ fact-sheet2 This test has been authorized by the FDA under an Emergency Use Authorization (EUA) for use by authorized laboratories. Due to the current public health emergency, [facility] is receiving a high volume of samples [...] about COVID-19 can be found at the [facility] website: www.Doculynx/Covid19. Test performed at [facility] [place] [address] [place] [phone] Director: ARELY GRIGGS DO,MPH FIRST TEST YES 07/15/2020 9:17 AM T [facility] EMPLOYED IN HEALTHCARE NO 07/15/2020 9:17 AM T [facility] SYMPTOMATIC DEFINED BY CDC NO 07/15/2020 9:17 AM T [facility] DATE OF SYMPTOM ONSET NON-APPLICABLE 07/15/2020 2:33 PM CDT [facility] HOSPITALIZATION STATUS NO 07/15/2020 9:17 AM CDT [facility] PATIENT IN ICU NO 07/15/2020 9:17 AM CDT [facility] RESIDENT OF CONGREGATE CARE NO 07/15/2020 9:17 AM CDT [facility] NO 07/15/2020 2:33 PM CDT [facility] PATIENT'S RACE WHITE OR 07/15/2020 9:17 AM CDT [facility] ETHNICITY NONHISPANIC 07/15/2020 9:17 AM CDT [facility] SOURCE (QST) NASOPHARYNGEAL SWAB 07/15/2020 9:17 AM CDT [facility] NASOPHARYNGEAL SWAB / Unknown 07/15/2020 9:29 AM CDT us Galileo Gee MD MICROBIOLOGY - GENERAL ORDERA BLES Final Result [facility] [address] [place] [address], [facility] [facility] [address] [place] [address], documented in this encounter Visit Diagnoses Diagnosis Preoperative clearance- Primary Preoperative examination, unspecified documented in this encounter Additional Health Concerns Infection Onset Date Last Indicated Resolved Time COVID-19 Rule Out 07/15/2020 07/15/2020 07/17/2020 9:46 AM CDT COVID-19 Rule Out 09/09/2020 09/09/2020 09/11/2020 9:46 AM BINDER SELECTOR COVID-19 Rule Out 10/15/2020 10/15/2020 10/15/2020 6:14 PM BINDER SELECTOR COVID-19 Rule Out 10/15/2020 10/15/2020 10/16/2020 2:06 PM BINDER SELECTOR documented as of this encounter Care Teams Baffle Installer Relationship Specialty Start Date End Date Babak Pickens DO [address] [address] PCP - General INTERNAL MEDICINE 07/11/20 documented as of this encounter
--- OUTSIDE RECORDS SUMMARY | 2025-05-12 10:57 | XMS_ITS | Encounter Summary ---
Author Organization [facility] Address [facility] [place] [address] Care Team Providers Care Tape Making Machine Operator Name Role Phone Babak Pickens DO Primary Care Provider [phone] Encounter Details Date Type Department Care Team (Late st Contact Info) Description 10/10/2020 Prep for Procedure [facility] One Day Services [address] [place] [address] Galileo Gee MD [address] [facility] [address] [address] Social History Tobacco Use Types Packs/Day Years Used Date Smoking Tobacco: Former Smokeless Tobacco: Never Alcohol Use Standard Drinks/Week Comments Not Currently 0 (1 standard drink = 0.6 oz pur e alcohol) Sex and Gender Information Value Date Recorded Sex Assigned at Not on file Legal Sex Male 10:17 PM VOICE WRITING REPORTER Gender Identity Not on file Sexual Orientation Not on file COVID-19 Exposure Response Date Recorded In the last month, have you been in contact with someone who was confirmed or suspected to have Coronavirus / COVID-19? No / Unsure 09/12/2020 8:30 AM VOICE WRITING REPORTER documented as of this encounter Plan of Treatment Not on file documented as of this encounter Visit Diagnoses Diagnosis Preop testing- Primary Preoperative examination, unspecified documented in this encounter Additional Health Concerns Infection Onset Date Last Indicated Resolved Time COVID-19 Rule Out 10/15/2020 10/15/2020 10/15/2020 6:14 PM VOICE WRITING REPORTER COVID-19 Rule Out 10/15/2020 10/15/2020 10/16/2020 2:06 PM VOICE WRITING REPORTER documented as of this encounter Care Teams Tape Making Machine Operator Relationship Specialty Start Date End Date Babak Pickens DO [address] [id number] PCP - General INTERNAL MEDICINE 07/11/20 documented as of this encounter
--- OUTSIDE RECORDS SUMMARY | 2025-05-12 10:57 | XMS_ITS | Clinical Summary ---
Author Organization [facility] Address [address] [place] [address] Care Team Providers Care Rod Buster Helper Name Role Phone Babak Pickens DO Primary Care Provider [phone] Allergies No known active allergies Medications metoprolol [...] on file Legal Sex Male 10:17 PM ELASTIC TAPE INSERTER Gender Identity Not on file Sexual Orientation Not on file Last Filed Vital Signs Vital Sign Reading Time Taken Comments Blood Pressure 110/59 10/17/2020 9:00 AM ELASTIC TAPE INSERTER Pulse 83 10/17/2020 8:45 AM ELASTIC TAPE INSERTER Temperature 37.1 C (98.8 F) 10/17/2020 6:36 AM ELASTIC TAPE INSERTER Respiratory Rate 18 10/17/2020 8:45 AM ELASTIC TAPE INSERTER Oxygen Saturation 95% 10/17/2020 9:00 AM ELASTIC TAPE INSERTER Inhaled Oxygen Concentration - - Weight 106.6 kg (235 lb) 10/10/2020 9:54 AM ELASTIC TAPE INSERTER Height 175.3 cm (5' 9) 10/10/2020 9:54 AM ELASTIC TAPE INSERTER Body Mass Index 34.7 10/10/2020 9:54 AM ELASTIC TAPE INSERTER Plan of Treatment Health Maintenance Due Date Last Done Comments Colorectal Cancer Screening Colonoscopy (10 Years) 1960 Annual Physical 1963 Hepatitis C 1978 DTaP, Tdap and Td Vaccines ( 1 - Tdap) 1979 Pneumococcal Vaccine: 50+ Ye ars (1 of 1 - PCV) 2010 Zoster Vaccines (1 of 2) 2010 COVID-19 Vaccine ( - 2023-2 5 season) 2024 RSV Immunization or 60+ Years (1 - [...] this topic Medical Devices Implanted Type Area Collection Card Clerk Device Identifier Shelf Expiration Date Model / Serial / Lot Iol [employer]cboo - [id number] Implanted:Qty: 1 on 07/18/2020 by Galileo Gee MD at [facility] Lens Left: Eye [employer] 07/24/2023 [id number] / / [id number] [id number] Neftali [employer]ision Zcboo - [id number] Implanted:Qty: 1 on 09/12/2020 by Galileo Gee MD at [facility] Lens Right: Eye [employer] 05/01/2022 [id number] / [id number] / Corneal Tissue (Dmek) Implanted:Qty: 1 on 09/12/2020 by Galileo Gee MD at [facility] Tissue Right: Eye 09/18/2020 Description:DIN: [id number] 20 00 [id number] Product Code: [id number] FIN(P): [id number] Corneal Tissue Dmek Implanted:Qty: 1 on 07/18/2020 by Galileo Gee MD at [facility] Left: Eye 07/28/2020 / [id number] Cornea- Posterior Layer Implanted:Qty: 1 on 10/17/2020 by Galileo Gee MD at [facility] Right: Eye 10/27/20202016038 Care Teams Rod Buster Helper Relationship Specialty Start Date End Date Babak Pickens DO [address] [id number] PCP - General INTERNAL MEDICINE 07/11/20
--- OUTSIDE RECORDS SUMMARY | 2025-05-12 10:57 | XMS_ITS | Clinical Summary ---
Author Organization [facility] [address] Address [address] [place] [address] Care Team Providers Care Stone Grader Name Role Phone Jayden Duarte MD Unavailable [phone] Pierre Gee MD Primary Care Provider [phone] Allergies Active Allergy Reactions Criticality Noted Date [...] (5 mg total) by mouth daily Active icosapent ethyL (VASCEPA) 1 gram capsule Take 2 capsules (2 g total) by mouth 2 (two) times a day 1 Active rosuvastatin (CRESTOR) 40 mg tabletIndicati ons:Coronary artery disease involving cach[place] dehe coronary artery of c[place] de[place] heart without angina pectoris,Hyper lipidemia LDL goal <70 Take 1 tablet (40 mg total) by mouth daily 30 tablet 11 2 05/04/20 26 Active gabapentin (NEURONTIN) 300 mg capsule TAKE 1 CAPSULE BY MOUTH EVERY DAY AT BEDTIME 3 Active Advair Diskus 500-50 mcg/dose diskus inhaler INHALE 1 PUFF BY MOUTH EVERY 12 HOURS 3 Active predniSONE (DELTASONE) 20 mg tablet Take 2 tablets (40 mg) by mouth daily 3 Active metoprolol tartrate (LOPRESSOR) 50 mg immediate release tablet TAKE 1 TABLET(50 MG) BY MOUTH TWICE DAILY 180 tablet 2 4 Active Ozempic 2 mg/dose (8 mg/3 mL) pen injector injection 4 Active clopidogreL (PLAVIX) 75 mg tablet TAKE 1 TABLET(75 MG) BY MOUTH DAILY 90 tablet 3 4 Active metoprolol tartrate (LOPRESSOR) 25 mg immediate release tablet TAKE 1/2 TABLET(12.5 MG) BY MOUTH TWICE DAILY 90 tablet 1 5 Active Jardiance 25 mg tablet Take 1 tablet (25 mg total) by mouth daily 5 Active empagliflozin (JARDIANCE) 10 mg tabletIndicati ons:type 2 diabetes mellitus Take 1 tablet (10 mg total) by mouth daily 05/04/20 25 Discontin ued(Alter maisha therapy) Active Problems Problem Noted Date Diagnosed Date 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 10/27/2019 Dyslipidemia 01/07/2019 Obstructive sleep apnea 10/03/2017 Coronary artery disease invo lving c[place]il dehe coronary artery of [place] heart without angina pectoris 03/25/2017 Essential hypertension, benign 03/25/2017 Hyperlipidemia LDL goal <70 03/25/2017 Cardiomyopathy, hypertrophic 03/25/2017 History of tobacco abuse 03/25/2017 Chronic obstructive pulmonary disease 03/25/2017 Encounters Date Type Department Care Team Description 05/04/2025 8:00 AM CDT Office Visit [facility] Cardiology [address] [place] [id number] Jayden Duarte MD Hyperlipidemia LDL goal <70 (Primary Dx); Coronary artery disease involving cachil dehe coronary artery of c[place] de[place] heart without angina pectoris; Essential hypertension, benign; Cardiomyopathy, hypertrophic (HCC); Obstructive sleep apnea 04/22/2025 Telephone [facility] Cardiology [address] [place] [phone] Jayden Duarte MD from Last 3 Months Surgical History Surgery [...] on file Legal Sex Male 6:59 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 Gender Identity Not on file Sexual Orientation Not on file Obstetrics History Last Filed Vital Signs Vital Sign Reading Time Taken Comments Blood Pressure 126/72 05/04/2025 7:57 AM CDT Pulse 84 05/04/2025 7:57 AM CDT Temperature - - Respiratory Rate - - Oxygen Saturation 96% 05/04/2025 7:57 AM CDT Inhaled Oxygen Concentration - - Weight 97.1 kg (214 lb) 05/04/2025 7:57 AM CDT Height 175.3 cm (5' 9) 05/04/2025 7:57 AM CDT Body Mass Index 31.6 05/04/2025 7:57 AM CDT Plan of Treatment Health Maintenance Due Date Last Done Comments Colon Cancer Screening-Colonoscopy 1960 Depression Screening 1960 Hepatitis C Screening 1960 Prostate Cancer Screening-PSA 1960 DTaP/Tdap/Td Vaccine (1 - Tdap) 1971 Hepatitis B Screening 1978 Regular Well Visit/Exam 18-64 1978 Pneumococcal vaccine <65 (1 of 2 - PCV) 1979 Zoster Vaccine (1 of 2) 2010 Influenza Vaccine (#1) 2025 9, 08/30/2013, 11/01/2012, Additional history exists Procedures Procedure Name Priority Date/Time Associated Diagnosis Comments POCT LIPID PANEL Routine 05/04/2025 8:00 AM CDT Hyperlipidemia LDL goal <70 from Last 3 Months Results * (ABNORMAL) POCT lipid panel (05/04/2025 8:00 AM CDT) Cholesterol, POC 175 <200 MG/DL HDL, POC 26(A) >=40 mg/dL Triglycerides, POC 608(A) <=149 mg/dL LDL Cholesterol POC 80 <=129 mg/dL Non-HDL Cholesterol, POC 148 NONE mg/dL Cholesterol Total, POC 175 30 - 199 mg/dL Capillary blood 05/04/2025 8 :00 AM CDT Jayden Duarte MD POINT OF CARE TEST ORDERA BLES Final Result from Last 3 Months Insurance [facility] Care Teams Stone Grader Relationship Specialty Start Date End Date Pierre Gee MD [address] [place] [address] [place] [address] [id number] PCP - General Family Practice 07/26/23 Jayden Duarte MD [address] [place] [address] [place] [address] [place] [id number] Cardiology 03/09/17
--- OUTSIDE RECORDS SUMMARY | 2025-05-12 10:57 | XMS_ITS | Encounter Summary ---
Author Organization [facility] Address [facility] [place] [address] Care Team Providers Care Bird Tender Name Role Phone Babak Pickens DO Primary Care Provider [phone] Encounter Details Date Type Department Care Team (Late st Contact Info) Description 09/06/2020 Prep for Procedure [facility] [address] [place] [address] Galileo Gee MD [address] [facility] [address] [address] Social History Tobacco Use Types Packs/Day Years Used Date Smoking Tobacco: Former Smokeless Tobacco: Never Alcohol Use Standard Drinks/Week Comments Not Currently 0 (1 standard drink = 0.6 oz pur e alcohol) Sex and Gender Information Value Date Recorded Sex Assigned at Not on file Legal Sex Male 10:17 PM SENIOR INFORMATION DEVELOPER Gender Identity Not on file Sexual Orientation Not on file COVID-19 Exposure Response Date Recorded In the last month, have you been in contact with someone who was confirmed or suspected to have Coronavirus / COVID-19? No / Unsure 09/09/2020 7:48 AM SENIOR INFORMATION DEVELOPER documented as of this encounter Plan of Treatment Not on file documented as of this encounter Results * PRE-SURGICAL/PRE-PROCEDURE CORONAVIRUS (COVID 19) (09/09/2020 8:03 AM SENIOR INFORMATION DEVELOPER) CORONAVIRUS SARS COV 2 PCR (RESP) NOT DETECTED NOT DETECTED 09/11/2020 9:46 AM SENIOR INFORMATION DEVELOPER [facility] Comment: A Not Detected (negative) test [...] providers and patients using the following websites: https://www.Drug123.com.Healthagen/home/Covid-19/HCP/QuestIVD/fact- sheet.html https://www.Drug123.com.Healthagen/home/Covid-19/Patients/ QuestIVD/fact-sheet.html This test has been authorized by the FDA under an Emergency Use Authorization (EUA) for use by authorized laboratories. Due to the current public health emergency, [facility] is receiving a high volume of samples [...] about COVID-19 can be found at the [employer] [facility] website: www.CuPcAkE & other things you bake.Healthagen/Covid19. Test performed at [facility] [address] [phone] Director: ARELY GRIGGS DO,MPH FIRST TEST NO 09/09/2020 7:49 AM [facility] EMPLOYED IN HEALTHCARE UNKNOWN 09/09/2020 7:49 AM [facility] SYMPTOMATIC DEFINED BY CDC NO 09/09/2020 7:49 AM [facility] DATE OF SYMPTOM ONSET UNKNOWN 09/09/2020 8:33 AM [facility] HOSPITALIZATION STATUS NO 09/09/2020 7:49 AM SENIOR INFORMATION DEVELOPER [facility] PATIENT IN ICU NO 09/09/2020 7:49 AM SENIOR INFORMATION DEVELOPER [facility] RESIDENT OF CONGREGATE CARE UNKNOWN 09/09/2020 7:49 AM SENIOR INFORMATION DEVELOPER [facility] UNKNOWN 09/09/2020 8:33 AM SENIOR INFORMATION DEVELOPER [facility] PATIENT'S RACE WHITE OR 09/09/2020 7:49 AM SENIOR INFORMATION DEVELOPER [facility] ETHNICITY NONHISPANIC 09/09/2020 7:49 AM SENIOR INFORMATION DEVELOPER [facility] SOURCE (QST) NASOPHARYNGEAL SWAB 09/09/2020 7:49 AM SENIOR INFORMATION DEVELOPER [facility] NASOPHARYNGEAL SWAB / Unknown 09/09/2020 8:03 AM SENIOR INFORMATION DEVELOPER us Galileo Gee MD MICROBIOLOGY - GENERAL ORDERA BLE Final Result [facility] [address] [place] [address], [facility] [id number] [place] [address], documented in this encounter Visit Diagnoses Diagnosis Preop testing- Primary Preoperative examination, unspecified documented in this encounter Additional Health Concerns Infection Onset Date Last Indicated Resolved Time COVID-19 Rule Out 09/09/2020 09/09/2020 09/11/2020 9:46 AM SENIOR INFORMATION DEVELOPER COVID-19 Rule Out 10/15/2020 10/15/2020 10/15/2020 6:14 PM SENIOR INFORMATION DEVELOPER COVID-19 Rule Out 10/15/2020 10/15/2020 10/16/2020 2:06 PM SENIOR INFORMATION DEVELOPER documented as of this encounter Care Teams Bird Tender Relationship Specialty Start Date End Date Babak Pickens DO [address] [facility] [address] [address] PCP - General INTERNAL MEDICINE 07/11/20 documented as of this encounter
--- OUTSIDE RECORDS SUMMARY | 2025-05-12 10:57 | XMS_ITS | Continuity of Care Document ---
Author Organization [facility] Address [address] [facility] [address] [place] [address] Phone Care Team Providers Care Lollypop Machine Operator Name Role Phone James Marsh Unavailable Unavailable Procedures Procedure Date Eye Exam, New Patient Advance Directives Directive Yes / No Effective Date File Name No Information Encounters Encounter Description Practice Location Reason(s) For Visit Diagnoses Date Provider Providers Copied on Encounter [facility], [address], [place], [place], [id number], [place] tel:[phone] [facility] No Information [address] Ramirez. [address] , [address], [place], [address], [place]. tel:[phone] Referring Provider: Juan White MD C, [address] [facility] [address], [place], [address]. tel:[phone] Family History Family Member Type Diagnosis Age At Onset No Information Payers Payer name Insurance type Covered democrat ID Authoriza tion(s) No Information Social History [...]
--- OUTSIDE RECORDS SUMMARY | 2025-05-12 10:57 | XMS_ITS | Referral Summary ---
Author Organization [facility] [address] [place] [address] [address] [place] [address] Care Team Providers Care Ethanol Operations Manager Name Role Phone Jayden Duarte MD Unavailable Pierre Gee MD Primary Care Provider [phone] Encounters Date Type Department Care Team Description 05/04/2025 8:00 AM CDT Office Visit [facility] Cardiology [address] [place] [address] Jayden Duarte MD Hyperlipidemia LDL goal <70 (Primary Dx); Coronary artery disease involving [place] cross coronary artery of [place] cross heart without angina pectoris; Essential hypertension, benign; Cardiomyopathy, hypertrophic (HCC); Obstructive sleep apnea 04/22/2025 Telephone [facility] [address] [facility] [address] [place] [address] Jayden Duarte MD from Last 3 Months Allergies Active Allergy [...] 40 mg tabletIndicati ons:Coronary artery disease involving [place] cross coronary artery of [place] cross heart without angina pectoris,Hyper lipidemia LDL goal [...] apnea 10/03/2017 Coronary artery disease invo lving [place] cross coronary artery of holy cross heart without angina pectoris 03/25/2017 Essential hypertension, [...] on file Legal 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 Male 6:59 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
[2025-05-12 11:45] LABS: Hemoglobin A1C 7.3 % (<5.7)
[2025-05-12 11:58] LABS: Alanine Aminotransferase 32 U/L (6-50); Albumin Level 4.2 g/dL (3.5-5.1); Alkaline Phosphatase 61 U/L (38-126); Anion Gap 7 mmol/L (4-12); Aspartate Amino Transferase 35 U/L (17-59); Bilirubin,Total 2.0 mg/dL (0.2-1.3); Blood Urea Nitrogen 20 mg/dL (9-20); Calcium 9.8 mg/dL (8.4-10.2); Carbon Dioxide 24 mmol/L (22-30); Chloride 108 mmol/L (98-107); Estimated Glomerular Filt Rate 47; Glucose 175 mg/dL (65-110); Potassium 4.1 mmol/L (3.4-5.0); Sodium 139 mmol/L (137-145); Total Protein 7.5 g/dL (6.3-8.2)
== END 2025-05-12 10:49 | disposition home or self-care (01) ==
LOC: ANHLAB 10:49
PROVIDERS: PCP Nurse Practitioner Family; Visit Provider Nurse Practitioner Family
DX: E11.29 Type 2 diabetes mellitus with other diabetic kidney complication (principal); G47.33 Obstructive sleep apnea (adult) (pediatric); I10 Essential (primary) hypertension
CPT/HCPCS: 36415; 80053; 83036